=== PATIENT | male | born 1940 | race Caucasian/White ===

== ENCOUNTER 2022-11-16 09:16 | Outpatient (CLI) | payer MEDICARE, OTHER, SELFPAY | END 2022-11-16 09:17 | disposition home or self-care (01) | PROVIDERS: Visit Provider Internal Medicine Gastroenterology | DX: Z12.11 Encounter for screening for malignant neoplasm of colon (principal); K57.30 Diverticulosis of large intestine without perforation or abscess without bleeding; Z86.010 Personal history of colon polyps | CPT/HCPCS: 45378; J2250; J3010 ==

== ENCOUNTER 2023-02-08 10:33 | Day surgery (SDC) | payer MEDICARE, BC, SELFPAY ==
[2023-02-08] MEDS: LACTATED RINGERS 1000 ML 1,000 ML 100 ML IV (10:50)
[2023-02-08] MEDS: SODIUM CHLORIDE 0.9 % (FLUSH) 10 ML SYRINGE IVF (10:50)
[2023-02-08 11:00] VITALS: BP 143/83; PULSE 86; RESP 18; TEMP 36.6; O2SAT 95; BMI 33.9
--- NOTE | 2023-02-08 11:04 | SUR.PREOP ---
Patient provided home covid negative results to RN.
[2023-02-08] MEDS: BUPIVACAINE 0.5% 30 ML INJECTION (11:38)
[2023-02-08] MEDS: CEFAZOLIN 2 GM INJ IVP (11:43)
--- NOTE | 2023-02-08 12:02 | W.ANESCHARGE ---
Anesthesia Charges Start Date/Time Anesthesia Start Date: 02/08/23 Anesthesia Start Time: 11:33 Stop Date/Time Anesthesia Stop Date: 02/08/23 Anesthesia Stop Time: 12:18 Summary Extremes of Age - Over 70 or under 1: MDA
[2023-02-08 12:14] VITALS: BP 135/95; PULSE 84; RESP 16; TEMP 37; O2SAT 98
[2023-02-08 12:15] VITALS: BP 141/86; PULSE 93; RESP 16; O2SAT 95
--- NOTE | 2023-02-08 12:15 | CRLHL7_ITS ---
For Patients: As a result of the Cures Act, medical imaging exams and procedure reports are released immediately into your electronic medical record. You may view this report before your referring provider. If you have questions, please contact your health care provider. Indication: Right 5th Metatarsal Head Resection Technique: Three fluoroscopic images of the right foot. Fluoroscopic time 4.8 seconds. IMPRESSION: Fluoroscopic guidance for distal 5th metatarsal resection. Old fracture deformities of the 3rd and 4th metatarsals. Dictated by Jacobo Otoole MD @ 02/08/2023 12:31:51 PM (Electronically Signed)
--- NOTE | 2023-02-08 12:17 | PM.PROC ---
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 He has callusing that could lead to ulceration. He would like to proceed with 5th metatarsal head resection. I reviewed the procedure, recovery, expectations and potential complications. These include but not limited to: Poor wound healing, infection, potential need for future surgery, deep venous thrombosis, pulmonary embolism possible . Site was marked. All questions answered. Written consent was obtained. Procedure: Patient from the operating room placed supine position on operating table. IV sedation was initiated local anesthetic injected in the right foot. His prepped and draped in sterile fashion. Standard time-out protocol followed. Right foot was exsanguinated and the tourniquet inflated. Linear incision was made over the dorsal lateral aspect of the 5th metatarsal phalangeal joint. Incision was carried down through skin subcutaneous tissues. Linear capsular incision was made. Capsule was reflected both medial and lateral and a McGlamry periosteal elevator was used to release all plantar adhesions. Sagittal saw was then used to resect the 5th metatarsal head at the appropriate angle. C-arm confirmed position. Fifth metatarsal head removed in total. Wound was thoroughly irrigated normal sterile saline. Capsular tissues repaired with 3-0 Vicryl. Subcutaneous tissues reapproximated 4-0 Monocryl and skin closed with 4-0 Prolene. Sterile dressing was applied. Tourniquet was released and normal cap refill time returned all digits. He has trans deferred from OR to PACU vital signs stable vascular status intact. He is given both written and verbal postop instructions. The discharged per Anesthesia. He is weight-bearing as tolerated. Follow-up in 2 days. Surgeon: Ari Marie DPM Condition: stable Disposition: same day
--- NOTE | 2023-02-08 12:17 | W.ANESCHARGE ---
Anesthesia Charges Start Date/Time Anesthesia Start Date: 02/08/23 Anesthesia Start Time: 11:33 Stop Date/Time Anesthesia Stop Date: 02/08/23 Anesthesia Stop Time: 12:18 Summary Extremes of Age - Over 70 or under 1: [employer]ER
[2023-02-08 12:30] VITALS: BP 145/94; PULSE 85; RESP 16; O2SAT 98
== END 2023-02-08 13:31 | disposition home or self-care (01) ==
PROVIDERS: PCP Family Medicine; Visit Provider Podiatrist
PROC: (CPT 28113; principal; 2023-02-08 12:15)
DX: M21.621 Bunionette of right foot (principal); M77.41 Metatarsalgia, right foot; G60.0 Hereditary motor and sensory neuropathy
CPT/HCPCS: 28113; 01480; 73620; 99100; J0690; J2250; J2704; J3010; J3490; J7120

== ENCOUNTER 2023-07-30 11:01 | Outpatient (RCR) | payer MEDICARE, BC, SELFPAY ==
--- NOTE | 2023-07-27 13:50 | URNOTE ---
Request received for authorization forIsaías ([id number]). Prior authorization is not required as services are based on medical necessity and follow Medicare guidelines.
[2023-07-30 11:42] VITALS: BP 101/63; PULSE 70; RESP 14; TEMP 36.1; O2SAT 96
[2023-07-30 11:42] LABS: Calcium* 9.3 mg/dL (8.4-10.6); Creatinine* 1.2 mg/dL (0.5-1.5); Estimated Glomerular Filt Rate 61 ml/min
== END 2024-01-26 23:59 | disposition home or self-care (01) ==
LOC: CCIC 11:01
PROVIDERS: PCP Family Medicine; Referring Provider Family Medicine; Visit Provider Clinical Nurse Specialist
DX: M81.0 Age-related osteoporosis without current pathological fracture (principal)
CPT/HCPCS: 36415; 82310; 82565; 96374; J3489

== ENCOUNTER 2023-11-29 06:01 | Day surgery (SDC) | payer MEDICARE, BC, SELFPAY ==
[2023-11-29] VITALS (9 sets, daily range): BP systolic 93–139; BP diastolic 63–84; PULSE 63–77; RESP 14–16; TEMP 36.4–36.8; O2SAT 84–99; BMI 33.7
[2023-11-29] MEDS: LACTATED RINGERS 1000 ML 1,000 ML 100 ML IV (06:40)
[2023-11-29] MEDS: SODIUM CHLORIDE 0.9 % (FLUSH) 10 ML SYRINGE IVF (06:40)
--- NOTE | 2023-11-29 07:05 | CRLHL7_ITS ---
For Patients: As a result of the Century Cures Act, medical imaging exams and procedure reports are released immediately into your electronic medical record. You may view this report before your referring provider. If you have questions, please contact your health care provider. Indication: Osteotomy Technique: One fluoroscopic image of the right forefoot. Fluoroscopic time is 7.1 seconds. IMPRESSION: Fluoroscopic guidance for right foot osteotomy. Dictated by Jacobo Otoole MD @ 11/29/2023 9:15:39 AM (Electronically Signed)
[2023-11-29] MEDS: CEFAZOLIN 2 GM INJ IVP (07:17)
[2023-11-29] MEDS: BUPIVACAINE 0.5% 30 ML 20 ML INJECTION (07:19)
--- NOTE | 2023-11-29 07:34 | SUR.OPER ---
PATIENT QUESTIONS ANSWERED SATISFACTORILY PREOPERATIVELY BY [place] KENDRICK RN.? PATIENT BROUGHT TO OR #1 PER CART.? Patient positioned supine on OR #1 bed.? The perioperative?team supported arms bilaterally on arm boards.? Final approval of positioning by surgeon.
--- NOTE | 2023-11-29 08:24 | W.ANESCHARGE ---
Anesthesia Charges Start Date/Time Anesthesia Start Date: 11/29/23 Anesthesia Start Time: 07:12 Stop Date/Time Anesthesia Stop Date: 11/29/23 Anesthesia Stop Time: 08:23
--- NOTE | 2023-11-29 08:27 | PM.GSPRC ---
Operative Note Date of procedure: 11/29/23 Pre-op diagnosis: Metatarsalgia right foot Post-op diagnosis: Metatarsalgia right foot Type of Procedure: 4th metatarsal head resection right foot Indications: Patient had the 5th metatarsal head resection previously with good results there is transfer pressure to the 4th. There is an old 3rd metatarsal fracture with significant elevation causing increased pressure to the 4th. He has elected surgical correction of this deformity. I reviewed the procedure, recovery, expectations and possible complications. These include but are not limited to: Poor wound healing, infection, nonunion, malunion, continued pain, new transfer lesion, potential need for future surgery, deep venous thrombosis, pulmonary embolism and possible . All questions answered and written consent was obtained. Procedure Description: After discussing the risks and benefits of the procedure, the patient signed informed consent.? The operative site was marked and the patient was brought to the operating room and placed on the operating table in supine position.? Care was taken to pad the patient's pressure points.?? The patient was then given sedation by anesthesia.?? Local anesthetic injected into the right foot. The operative site was then prepped and draped in the usual sterile fashion.? A time-out was then performed. Right foot was exsanguinated and the ankle tourniquet inflated to 250 mm Hg. Dorsal linear incision is made over the 4th metatarsal head. Incision is carried down through skin subcutaneous tissues. A Z-lengthening was performed on the extensor tendon. Linear incision made through the capsule and periosteum of the dorsal metatarsal. A v-shaped osteotomy was made to the neck of the metatarsal. Capital fragment was transposed dorsally. With maximal dorsal translation there is still increased prominence plantarly. With a maximal dorsal translation was not possible to fixate. With the metatarsal still being prominent due to the severely of the 3rd I elected to simply remove the 4th metatarsal head in total. C-arm confirmed appropriate level of resection. Wound was thoroughly irrigated normal sterile saline. Extensor tendon was repaired with 4-0 Vicryl. Subcutaneous tissues reapproximated 4-0 Monocryl and skin closed 4-0 Prolene. Sterile dressings applied. He was transferred from OR to PACU vital signs stable vascular status intact to the right foot. He was discharged per Anesthesia. He was given both written and verbal postoperative instructions. He will restart his apixaban tomorrow. He is weight-bearing as tolerated with a postoperative shoe. Findings: Complications: Severely elevated 3rd metatarsal presented osteotomy 4th resulting in 4th metatarsal head resection. Anesthesia: MAC and local Surgeon: Ari Marie DPM Estimated blood loss (mL): 2 Condition: stable Disposition: same day
--- NOTE | 2023-11-29 10:45 | SUR.PHASEII ---
PATIENT WAITING FOR RIDE, UNABLE TO REACH .
== END 2023-11-29 12:00 | disposition home or self-care (01) ==
LOC: OR 06:03
PROVIDERS: PCP Family Medicine; Visit Provider Podiatrist
PROC: (CPT 28308; principal; 2023-11-29 07:15)
DX: M77.41 Metatarsalgia, right foot (principal); E11.9 Type 2 diabetes mellitus without complications
CPT/HCPCS: 28308; 28112; 01480; 73620; 76000; 82962; J0665; J0690; J1100; J2405; J2704; J3010; J7120

== ENCOUNTER 2023-12-02 17:34 | Outpatient (CLI) | payer MEDICARE, BC, SELFPAY | END 2023-12-02 17:35 | disposition home or self-care (01) | LOC: AMB 12-03 18:10 | PROVIDERS: PCP Family Medicine; Visit Provider Student in an Organized Health Care Education/Training Program | DX: M25.561 Pain in right knee (principal) | CPT/HCPCS: A0425; A0427 ==

== ENCOUNTER 2023-12-02 18:09 | Observation (INO) | payer MEDICARE, BC, SELFPAY ==
[2023-12-02 18:13] VITALS: BP 138/84; PULSE 76; RESP 18; TEMP 36.2; O2SAT 95; BMI 32.6
--- NOTE | 2023-12-02 19:04 | CRLHL7_ITS ---
For Patients: As a result of the Century Cures Act, medical imaging exams and procedure reports are released immediately into your electronic medical record. You may view this report before your referring provider. If you have questions, please contact your health care provider. INDICATION: Right knee pain, trauma. TECHNIQUE: Right knee radiographs, 3 views. COMPARISON: None. FINDINGS: There may be cortical discontinuity involving the lateral femoral condyle only seen on the frontal projection, raising the possibility of a subtle nondisplaced fracture. Chondrocalcinosis within the medial compartment of the left knee. Mild osteoarthritic degenerative joint space narrowing and marginal osteophytosis. The joint spaces are preserved. Moderate to large joint effusion. Small patellar enthesophytes at the quadriceps insertion. No significant soft tissue edema or radiopaque foreign bodies. IMPRESSION: Findings suspicious for a nondisplaced fracture of the lateral femoral condyle, with a moderate to large joint effusion. Dictated by Deshaun Kaiser MD @ 12/02/2023 8:09:05 PM (Electronically Signed)
--- NOTE | 2023-12-02 19:06 | ED_ITS ---
HPI - General Adult General Chief complaint: Extremity Pain/Injury, Lower Stated complaint: R knee pain Time Seen by Provider: 12/02/23 18:26 History of Present Illness HPI narrative: This 83-year-old male comes in with right knee pain. He recently had a surgery on his right foot and states that he fell directly onto his right knee last evening. Today he has worsening pain that is severe. He did take Tylenol without any relief. He has bruising over the anterior portion of his knee. There is also some abrasions. He states that he has been sitting around all day but did use a walker to get up to the bathroom. He came here by ambulance. Related Data Home Medications Medication Instructions Recorded Confirmed apixaban 5 mg tablet (Eliquis) 5 mg PO BID 12/02/22 12/02/23 diltiazem HCl 240 mg 240 mg PO DAILY 12/02/22 12/02/23 capsule,extended release 24 hr, controlled metoprolol succinate 25 mg 25 mg PO DAILY 12/02/22 12/02/23 tablet,extended release 24 hr cpap PO 12/04/22 05/26/23 levothyroxine 112 mcg capsule 112 mcg PO DAILY 01/06/23 12/02/23 prednisone 1 mg tablet 3 mg PO DAILY 01/06/23 12/02/23 acetaminophen 500 mg tablet mg PO PRN 05/26/23 05/26/23 cholecalciferol (vitamin D3) 50 2,000 unit PO DAILY 05/26/23 12/02/23 mcg (2,000 unit) capsule vibegron 75 mg tablet (Gemtesa) 75 mg PO QDAY 05/27/23 12/02/23 Allergies Allergy/AdvReac Type Severity Reaction Status Date / Time oxybutynin Allergy dry mouth Verified 12/02/23 18:12 oxycodone Allergy Vomiting Verified 12/02/23 18:12 trospium Allergy dry mouth Verified 12/02/23 18:12 Review of Systems Status of ROS: Reports: 10 or more systems reviewed and unremarkable except as noted in History and below Narrative: Constitutional: No fevers, no weight gain or loss. Eyes: No discharge. No vision changes. HENT: No congestion, no sore throat, no ear pain. Cardiovascular: No chest pain, no palpitations. Respiratory: No shortness of breath, no wheezes, no cough. Gastrointestinal: No abdominal pain, no vomiting, no diarrhea. Genitourinary: No dysuria, no hematuria. Musculoskeletal: Right knee pain as described above. Skin: No rashes, no pruritis. Neurological: No dizziness, weakness, sensory change, speech change. Endo/Heme/Allergies: No bruising or bleeding. No polydipsia. Pysch: no suicidality, no anxiety, no insomnia. All other systems reviewed and are negative. 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) Atrial fibrillation ?I48.91 - Unspecified atrial fibrillation (ICD-10) Weakness ?R53.1 - Weakness (ICD-10) Preoperative testing ?Z01.818 - Encounter for other preprocedural examination (ICD-10) Laceration Infection due to severe acute respiratory syndrome coronavirus 2 (SARS-CoV-2) ?U07.1 - COVID-19 (ICD-10) Hyponatremia ?E87.1 - Hypo-osmolality and hyponatremia (ICD-10) Fracture of rib ?S22.39XA - Fracture of one rib, unspecified side, initial encounter for closed fracture (ICD-10) Delirium ?R41.0 - Disorientation, unspecified (ICD-10) Contusion of left knee ?S80.02XA - Contusion of left knee, initial encounter (ICD-10) Confusion ?R41.0 - Disorientation, unspecified (ICD-10) Chronic obstructive pulmonary disease ?J44.9 - Chronic obstructive pulmonary disease, unspecified (ICD-10) Acute kidney injury ?N17.9 - Acute kidney failure, unspecified (ICD-10) FH: hypertension ?Z82.49 - Family history of ischemic heart disease and other diseases of the circulatory system (ICD-10) Pituitary adenoma ?D35.2 - Benign neoplasm of pituitary gland (ICD-10) Skin cancer ?C44.90 - Unspecified malignant neoplasm of skin, unspecified (ICD-10) Lumbar back pain ?M54.50 - Low back pain, unspecified (ICD-10) Osteoporosis ?M81.0 - Age-related osteoporosis without current pathological fracture (ICD- 10) Atrial fibrillation ?I48.91 - Unspecified atrial fibrillation (ICD-10) Hypertension ?I10 - Essential (primary) hypertension (ICD-10) Sleep apnea ?G47.30 - Sleep apnea, unspecified (ICD-10) Hypothyroid ?E03.9 - Hypothyroidism, unspecified (ICD-10) Surgical History H/O wrist surgery (~06/2016) ?Z98.890 - Other specified postprocedural states (ICD-10) History of arthroscopy of left shoulder (03/19/05) ?Z98.890 - Other specified postprocedural states (ICD-10) S/P trigger finger release (10/05/08) ?Z98.890 - Other specified postprocedural states (ICD-10) Status post right rotator cuff repair (10/21/18) ?Z98.890 - Other specified postprocedural states (ICD-10) History of foot surgery (03/30/22) ?Z98.890 - Other specified postprocedural states (ICD-10) H/O arthroscopy of right knee (01/13/07) ?Z98.890 - Other specified postprocedural states (ICD-10) 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) ?Z96.652 - Presence of left artificial knee joint (ICD-10) History of repair of hiatal hernia ?Z98.890 - Other specified postprocedural states (ICD-10) ?Z87.19 - Personal history of other diseases of the digestive system (ICD-10) History of cholecystectomy ?Z90.49 - Acquired absence of other specified parts of digestive tract (ICD- 10) Social History Smoking Status: Former smoker What tobacco products do you use: cigarettes Smoking quit date/years: >15 years ago Do you use any of these nicotine containing products: None Second hand tobacco smoke exposure: No How often do you have a drink containing alcohol: monthly or less Alcohol type: beer How many standard drinks containing alcohol do you have on a typical day: 1 or 2 How often do you have six or more drinks on one occasion: Never AUDIT-C Alcohol total score: 1 Non-prescribed substance use: denies use Caffeine: Yes Exam Narrative: Exam Narrative: Constitutional: Well-developed, well-nourished, no acute distress. HEENT: Normocephalic, atraumatic. Neck: Normal range of motion. Nontender. Supple. Heart: Intact distal pulses. Lungs: No chest discomfort. No wheezes, rhonchi, or rales. Abdomen: Nontender. Back: Normal range of motion. Extremities: Diffuse swelling of the right knee with some bruising and superficial abrasion. No pain when log-rolling his leg. He is not able to raise his right leg from the bed due to pain in the area of his knee. Skin: Intact. No rash. Warm. No erythema or pallor. Neurologic: No altered sensation. No weakness. Alert and oriented. Psychiatric: No suicidality. No anxiety or depression. No insomnia. Nursing notes and vitals signs are reviewed. Const: Vital Signs, click to edit/add: Vital Signs - 24 hr 12/02/23 18:13 Temperature 97.2 F L Pulse Rate [Pulse Oximeter] 76 Respiratory Rate 18 Blood Pressure [Le ft Upper Arm] 138/84 Pulse Oximetry 95 Oxygen Delivery Me thod Room Air Course Vital Signs Vital signs: Initial Vital Signs Temperature 97.2 F L 12/02/23 18:13 Temperature Source Temporal Artery Scan 12/02/23 18:13 Pulse Rate 76 12/02/23 18:13 Respiratory Rate 18 12/02/23 18:13 Blood Pressure 138/84 12/02/23 18:13 Blood Pressure Mean 102 12/02/23 18:13 Blood Pressure Position Semi-Fowlers 12/02/23 18:13 Pulse Oximetry 95 12/02/23 18:13 Oxygen Delivery Method Room Air 12/02/23 18:13 Vital Signs Temperature 97.2 F L 12/02/23 18:13 Pulse Rate 76 12/02/23 18:13 Respiratory Rate 18 12/02/23 18:13 Blood Pressure 138/84 12/02/23 18:13 Pulse Oximetry 95 12/02/23 18:13 Oxygen Delivery Method Room Air 12/02/23 18:13 Temperature 97.2 F L 12/02/23 18:13 Pulse Rate 76 12/02/23 18:13 Respiratory Rate 18 12/02/23 18:13 Blood Pressure 138/84 12/02/23 18:13 Pulse Oximetry 95 12/02/23 18:13 Oxygen Delivery Method Room Air 12/02/23 18:13 Medications Administered Medications: Generic Name Dose Route Start Last Admin Trade Name Norman PRN Reason Stop Dose Admin Morphine Sulfate 10 mg 12/02/23 19:04 12/02/23 19:10 Morphine 10 Mg/Ml Inj IM 12/02/23 19:05 10 mg ONCE ONE Administration Medical Decision Making MDM Narrative Medical decision making narrative: This patient comes in with an injury to his right knee. He has a moderate to large effusion related to this injury. An x-ray is obtained which shows some suspicion of a nondisplaced fracture of the lateral condyle of the femur. I did speak to the orthopedic physician's historian research assistant director of instruction in this regard and it seemed good to order a CT scan to more accurately evaluate this injury. In any event the patient will need to come in as he is not able to the ambulate. I did speak with Dr. Howard who will range for his admission. The patient did receive an intramuscular injection of morphine which brought sufficient pain relief. Imaging Data XR R Knee: Radiologist's impression: Findings suspicious for a nondisplaced fracture of the lateral femoral condyle, with a moderate to large joint effusion. Discharge Plan Discharge Clinical Impression: Injury of knee Patient Disposition: Admitted As Inpatient Condition: Unchanged Prescriptions: No Action diltiazem HCl 240 mg capsule,ext.rel 24h degradable 240 mg PO DAILY Patient Comments: TAKE ONE CAPSULE BY MOUTH ONE TIME DAILY metoprolol succinate 25 mg tablet extended release 24 hr 25 mg PO DAILY Patient Comments: TAKE ONE TABLET BY MOUTH ONE TIME DAILY Eliquis 5 mg tablet 5 mg PO BID Patient Comments: TAKE ONE TABLET BY MOUTH TWICE DAILY cpap PO cholecalciferol (vitamin D3) 50 mcg (2,000 unit) capsule 2,000 unit PO DAILY acetaminophen 500 mg tablet PO PRN Gemtesa 75 mg tablet 75 mg PO QDAY levothyroxine 112 mcg capsule 112 mcg PO DAILY prednisone 1 mg tablet 3 mg PO DAILY Follow Up/Referrals: Ruiz Frank MD [Primary Care Provider] -
[2023-12-02] MEDS: MORPHINE 10 MG/ML inj IM (19:10)
--- NOTE | 2023-12-02 19:58 | ED.NURSE ---
Report given to oncoming RN
--- NOTE | 2023-12-02 20:51 | CRLHL7_ITS ---
For Patients: As a result of the Century Cures Act, medical imaging exams and procedure reports are released immediately into your electronic medical record. You may view this report before your referring provider. If you have questions, please contact your health care provider. Indication: Injury, right knee pain Technique: Noncontrast CT of the right knee. Permanently recorded images are archived. Please note that all CT scans at this facility use dose modulation, iterative reconstruction, and/or weight-based dosing when appropriate to reduce radiation dose to as low as reasonably achievable. Comparison: Right knee radiographs from the same day. Findings: Multiple amorphous calcific densities within the intracondylar notch. No discrete donor site identified. Large knee joint effusion. Small superior patellar enthesophyte. Alignment is normal. Mild tricompartment degenerative changes. Subtle medial and lateral compartment chondrocalcinosis. No aggressive osseous lesion. Mild superficial soft tissue swelling about the knee. Impression: 1. No acute bony abnormality. Intact lateral femoral condyle. 2. Large knee joint effusion. No fat-fluid or hematocrit level. 3. Multiple amorphous calcific densities within the intracondylar notch. These are favored to represent intra-articular bodies as there is no discrete donor site to indicate these are acute fracture fragments. Please note that all CT scans at this facility use dose modulation, iterative reconstruction, and/or weight-based dosing when appropriate to reduce radiation dose to as low as reasonably achievable. Dictated by Lenny Montes MD @ 12/02/2023 9:54:27 PM (Electronically Signed)
--- NOTE | 2023-12-02 21:29 | PM.IMHP1 ---
Hospitalist- H&P: HPI History of Present Illness Date Seen: 12/02/23 Chief complaint: R knee pain Narrative: Gerardo Calvo is a 83 year old male with Kmjfbgg-Zihak-Lzhed disease, sleep apnea, adrenal insufficiency, atrial fibrillation on anticoagulation, diabetes mellitus and right foot surgery 3 days ago presents after a fall at home yesterday causing severe right knee pain. He had an accidental fall at home yesterday without injury other than his right knee. He reports he lost his balance and fell forward onto his knee. He did not lose consciousness or hit his head. Overnight the pain got much worse. He has been able to get up with his walker and walk but is very painful and difficult for him. Three days ago he had resection of his 4th metatarsal on his right foot by Dr. Marie. The procedure was uncomplicated. He has recovered well. He saw Dr. Marie yesterday and was not seem to have any problems. He is weight-bearing as tolerated on that foot. He reports no recent illness and no other injury. He normally walks with a walker. He has Charcot Antonia Tooth neuropathy causing weakness, particularly in his hands and feet. Review of Systems Narrative: No other recent illness or injury. 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) Atrial fibrillation ?I48.91 - Unspecified atrial fibrillation (ICD-10) Weakness ?R53.1 - Weakness (ICD-10) Preoperative testing ?Z01.818 - Encounter for other preprocedural examination (ICD-10) Laceration Infection due to severe acute respiratory syndrome coronavirus 2 (SARS-CoV-2) ?U07.1 - COVID-19 (ICD-10) Hyponatremia ?E87.1 - Hypo-osmolality and hyponatremia (ICD-10) Fracture of rib ?S22.39XA - Fracture of one rib, unspecified side, initial encounter for closed fracture (ICD-10) Delirium ?R41.0 - Disorientation, unspecified (ICD-10) Contusion of left knee ?S80.02XA - Contusion of left knee, initial encounter (ICD-10) Confusion ?R41.0 - Disorientation, unspecified (ICD-10) Chronic obstructive pulmonary disease ?J44.9 - Chronic obstructive pulmonary disease, unspecified (ICD-10) Acute kidney injury ?N17.9 - Acute kidney failure, unspecified (ICD-10) FH: hypertension ?Z82.49 - Family history of ischemic heart disease and other diseases of the circulatory system (ICD-10) Pituitary adenoma ?D35.2 - Benign neoplasm of pituitary gland (ICD-10) Skin cancer ?C44.90 - Unspecified malignant neoplasm of skin, unspecified (ICD-10) Lumbar back pain ?M54.50 - Low back pain, unspecified (ICD-10) Osteoporosis ?M81.0 - Age-related osteoporosis without current pathological fracture (ICD-10) Atrial fibrillation ?I48.91 - Unspecified atrial fibrillation (ICD-10) Hypertension ?I10 - Essential (primary) hypertension (ICD-10) Sleep apnea ?G47.30 - Sleep apnea, unspecified (ICD-10) Hypothyroid ?E03.9 - Hypothyroidism, unspecified (ICD-10) Surgical History (Updated 12/02/23 @ 21:43 by Pako Howard MD) H/O wrist surgery (~06/2016) ?Z98.890 - Other specified postprocedural states (ICD-10) History of arthroscopy of left shoulder (03/19/05) ?Z98.890 - Other specified postprocedural states (ICD-10) S/P trigger finger release (10/05/08) ?Z98.890 - Other specified postprocedural states (ICD-10) Status post right rotator cuff repair (10/21/18) ?Z98.890 - Other specified postprocedural states (ICD-10) History of foot surgery (03/30/22) ?Z98.890 - Other specified postprocedural states (ICD-10) H/O arthroscopy of right knee (01/13/07) ?Z98.890 - Other specified postprocedural states (ICD-10) 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) ?Z96.652 - Presence of left artificial knee joint (ICD-10) History of repair of hiatal hernia ?Z98.890 - Other specified postprocedural states (ICD-10) ?Z87.19 - Personal history of other diseases of the digestive system (ICD-10) History of cholecystectomy ?Z90.49 - Acquired absence of other specified parts of digestive tract (ICD-10) Family History (Updated 12/02/23 @ 21:34 by Pako Howard MD) Other High blood pressure Social History (Updated 12/02/23 @ 21:35 by Pako Howard MD) Narrative: He [place] of the [facility]. He lives with his . is healthcare power of deputy prosecuting attorney. Code status is full. He quit smoking in 1986. He rarely drinks alcohol Smoking Status: Former smoker What tobacco products do you use: cigarettes Smoking quit date/years: >15 years ago Do you use any of these nicotine containing products: None Second hand tobacco smoke exposure: No How often do you have a drink containing alcohol: monthly or less Alcohol type: beer How many standard drinks containing alcohol do you have on a typical day: 1 or 2 How often do you have six or more drinks on one occasion: Never AUDIT-C Alcohol total score: 1 Non-prescribed substance use: denies use Caffeine: Yes Meds Home Medications and Allergies Home Medications Medication Instructions Recorded Confirmed Type apixaban 5 mg tablet (Eliquis) 5 mg PO BID 12/02/22 12/02/23 History diltiazem HCl 240 mg 240 mg PO DAILY 12/02/22 12/02/23 History capsule,extended release 24 hr, controlled metoprolol succinate 25 mg 25 mg PO DAILY 12/02/22 12/02/23 History tablet,extended release 24 hr cpap PO 12/04/22 05/26/23 History levothyroxine 112 mcg capsule 112 mcg PO DAILY 01/06/23 12/02/23 History prednisone 1 mg tablet 3 mg PO DAILY 01/06/23 12/02/23 History acetaminophen 500 mg tablet mg PO PRN 05/26/23 05/26/23 History cholecalciferol (vitamin D3) 50 2,000 unit PO DAILY 05/26/23 12/02/23 History mcg (2,000 unit) capsule vibegron 75 mg tablet (Gemtesa) 75 mg PO QDAY 05/27/23 12/02/23 History Allergies Allergy/AdvReac Type Severity Reaction Status Date / Time oxybutynin Allergy dry mouth Verified 12/02/23 18:12 oxycodone Allergy Vomiting Verified 12/02/23 18:12 trospium Allergy dry mouth Verified 12/02/23 18:12 Exam Narrative: Exam Narrative: He is alert pleasant and appears in no distress. He gives his own history. Eyes are normal. Oropharynx with small airway. Neck is supple without mass or adenopathy. Respirations are clear to auscultation. Good air exchange all lung liu. Cardiovascular: S1, S2, irregularly irregular. No murmur gallop or rub. Abdomen: Bowel sounds active. Abdomen is soft without tenderness or mass. External genitalia normal. Upper extremities are unremarkable except for atrophy of the intrinsic muscles of his hands up. Otherwise relatively symmetric upper extremity strength and motion. Lower extremities examined: Left leg has a normal motion and strength and intact pulses and no edema. Right lower extremity has an obvious tense right knee effusion. Palpation of this effusion has some tenderness to it. The knee is not red. He has a little bit of lateral hot bony tenderness but otherwise no obvious focal tenderness over bony prominences of the knee. Distal to the knee he has 1 to 2+ edema over his calf and right foot. He has a postop shoe on his right foot for he had surgery 3 days ago. The dressing there is removed to inspect the wound. Sutures are in place. He has some bruising but no erythema or drainage around he the dorsum of his 4th metatarsal where the sutures are placed. Const: Vital Signs, click to edit/add: Vital Signs - 24 hr 12/02/23 18:13 Temperature 97.2 F L Pulse Rate [Pulse Oximeter] 76 Respiratory Rate 18 Blood Pressure [Le ft Upper Arm] 138/84 Pulse Oximetry 95 Oxygen Delivery Me thod Room Air Documenting provider has reviewed patient's vital signs: yes Assessment and Plan Assessment and plan (1) Injury of knee: Problem comment: Tense joint effusion, suspect hemarthrosis, suspect fracture or ligamentous tear. Unable to walk. Consult Ortho Status: Acute (2) Aflhfmq-Dsewt-Ogltd disease: Status: Acute (3) Chronic anticoagulation: Problem comment: On Eliquis for atrial fibrillation. Will hold dose tonight due to concern about bleeding. Probably can resume in the next day depending on orthopedic consult and clinical course. Status: Acute (4) Atrial fibrillation: Problem comment: On anticoagulation. Hold for tonight Status: Acute (5) History of foot surgery: Problem comment: Resection of 4th metatarsal head on right foot [address] Marie. Weight-bearing as tolerated Resection of 5th metatarsal head, left foot (03/30/2022, Dr. Marie) Status: Acute (6) Disability of walking: Problem comment: Disability due to chronic medical problems, CMT and neuropathy and now foot surgery and knee injury. Ortho consult to determine activity and PT and OT to evaluate Status: Acute Plan Patient is a an 83-year-old male with a knee injury and likely acute heme arthrosis admitted to the hospital for evaluation of his injury and pain control. Multiple comorbidities affecting his mobility. Orthopedics, PT, OT to evaluate. May need higher level of care temporarily.\ Will hold apixaban tonight but likely can be resumed relatively soon depending on his clinical course. Total time spent today is 60 minutes, 40 minutes in coordination of care and discussing with patient and other providers management of disability, knee injury.
--- NOTE | 2023-12-02 21:29 | ED.NURSE ---
Report given to m/s nurseJasvir. All questions answered. Nurse notified pt has an allergy to oxycodone listed, but orders show oxycodone has been ordered by Dr. Howard. Notified nurse to speak with Dr. Howard regarding this. Pt transferred to Room 261 in stable condition. All belongings with patient upon transfer.
[2023-12-02 21:46] VITALS: BP 150/89; PULSE 94; RESP 16; TEMP 37.5; O2SAT 96; BMI 34.3
[2023-12-02] MEDS: OXYCODONE 5 MG TABLET PO (22:16)
[2023-12-02 22:49] LABS: Chloride* 100 mmol/L (96-114); Potassium* 4.3 mmol/L (3.6-5.1); Sodium* 135 mmol/L (135-149)
[2023-12-02 22:52] LABS: Anion Gap 7 mEq/L (7-15); Carbon Dioxide* 28 mmol/L (20-32); Creatinine* 0.9 mg/dL (0.5-1.5); Est. Creatinine Clearance* 51.39; Estimated Glomerular Filt Rate 85 ml/min
[2023-12-02 22:53] LABS: Blood Urea Nitrogen* 25 mg/dL (7-30); Glucose* 118 mg/dL (60-115)
[2023-12-02 22:55] LABS: Basophils Absolute Auto 0.01 K/uL (0.00-0.30); Basophils Percent Auto 0.1 % (0.0-3.0); Eosinophils Absolute Auto 0.08 K/uL (0.00-0.50); Eosinophils Percent Auto 0.8 % (0.0-7.0); Hematocrit 41.2 % (37.0-53.0); Hemoglobin* 13.3 gm/dL (13.5-17.5); Immature Granulocytes Abs Auto 0.13 K/uL (0.00-0.30); Immature Granulocytes Pct Auto 1.3 %; Lymphocytes Percent Auto 19.9 % (20-44); Mean Corpuscular HGB Conc 32 gm/dL (32-36); Mean Corpuscular Hemoglobin 29 pg (26-34); Mean Corpuscular Volume 91 fL (80-100); Monocytes Percent Auto 10.7 % (0.0-11.0); Neutrophils Absolute Auto 6.69 K/uL (1.7-7.0); Neutrophils Percent Auto 67.2 % (42.0-72.0); Platelet Count* 248 K/uL (140-440); RDW Coefficient of Variation % 13.2 % (11.5-15.5); Red Blood Count 4.55 m/uL (4.30-5.90); White Blood Count* 9.95 K/uL (4.50-11.00)
[2023-12-02 22:56] LABS: C Reactive Protein* 3.9 mg/dL (0.5-1.0)
[2023-12-02 22:58] LABS: Slide Review Reflex No
[2023-12-02 23:00] VITALS: BP 150/83; PULSE 87; RESP 16; TEMP 37.2; O2SAT 91
[2023-12-02 23:43] LABS: Thyroid Stimulating Hormone* 0.105 uIU/mL (0.270-4.20)
[2023-12-03 03:00] VITALS: BP 142/97; PULSE 80; RESP 16; TEMP 37.2; O2SAT 93
[2023-12-03] MEDS: OXYCODONE 5 MG TABLET PO (06:27)
[2023-12-03] MEDS: LEVOTHYROXINE 112 MCG TABLET PO (06:27)
--- NOTE | 2023-12-03 06:55 | PC.NURSE ---
Shift note: Pt arrived at the unit on admission bed from ER on account of fall. Patient complained of pain in the right knee rated at 5/10. Conscious, A/O on arrival. Pt is hard of hearing but do no use hearing aid. V/S monitored appeared normal except the T 99.9 and Bp 150/89. Pt said he was allergic to Oxycodone due to previous experience of vomiting with this medication. However, MD ordered to give and monitor for any reaction. Pt had no reaction to the medication after given and was repeated this morning with no reaction. Cryocuff applied to the right knee. Pt had adequate sleep. Bruises and abrasion noted on the right lower extremity. Home CPAP was brought in and was assessed by tiny sup. Pt has been on the CPAP throughout the night. Pt has not been moved out of bed since admission and therefore unable assess how much help will be needed for ambulation.
[2023-12-03 07:30] VITALS: BP 133/81; PULSE 104; RESP 16; TEMP 36.5; O2SAT 96
[2023-12-03] MEDS: ACETAMINOPHEN 325 MG TABLET 650 MG PO (07:41)
[2023-12-03 08:56] LABS: Mononuclear WBC Body Fluid* 4 %; Polynuclear WBC Body Fluid* 96 %
[2023-12-03 09:00] LABS: BF Clarity* Cloudy; BF Color Grossly Bloody; BF Total Volume* 15; RBC, Body Fluid* 70000 Cells/uL
[2023-12-03 09:01] LABS: WBC, Body Fluid* 30100 Cells/uL
[2023-12-03] MEDS: METOPROLOL SUCCINATE (XL) 25 MG TAB PO (09:22)
[2023-12-03] MEDS: predniSONE 1 MG TABLET 3 MG PO (09:22)
[2023-12-03] MEDS: dilTIAZem 120 MG CAP.ER.24H 240 MG PO (09:22)
[2023-12-03 11:20] VITALS: BP 111/65; PULSE 83; RESP 16; TEMP 36.6; O2SAT 96
--- NOTE | 2023-12-03 12:13 | P.ORCN_ITS ---
History of Present Illness HPI Time Seen by Provider: 07:45 Date Seen: 12/03/23 Consult date: 12/03/23 Requesting physician: Pako Howard Chief complaint: R knee pain Narrative: Gerardo Calvo is a very pleasant 83 year old male with Lxshqtp-Sgzeb-Oawzt disease, sleep apnea, adrenal insufficiency, atrial fibrillation on anticoagulation, diabetes mellitus and right foot surgery 3 days ago presents to [facility] a fall at home 12/01/2023 causing severe right knee pain. He had an accidental fall without injury other than his right knee. He reports he lost his balance and fell forward onto his right knee. He has had his left knee replaced in the past. He did not lose consciousness or hit his head. His pain has been worsening. He has been able to get up with his walker and walk but is very painful and difficult for him. 4 days ago he had resection of his 4th metatarsal on his right foot by Dr. Marie. The procedure was uncomplicated. He has recovered well. He saw Dr. Marie 12/01/2023 and was not seem to have any problems. He is weight- bearing as tolerated on that foot. He reports no recent illness and no other injury. He normally walks with a walker. He has Charcot Antonia Tooth neuropathy causing weakness, particularly in his hands and feet. 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) Atrial fibrillation ?I48.91 - Unspecified atrial fibrillation (ICD-10) Weakness ?R53.1 - Weakness (ICD-10) Preoperative testing ?Z01.818 - Encounter for other preprocedural examination (ICD-10) Laceration Infection due to severe acute respiratory syndrome coronavirus 2 (SARS-CoV-2) ?U07.1 - COVID-19 (ICD-10) Hyponatremia ?E87.1 - Hypo-osmolality and hyponatremia (ICD-10) Fracture of rib ?S22.39XA - Fracture of one rib, unspecified side, initial encounter for closed fracture (ICD-10) Delirium ?R41.0 - Disorientation, unspecified (ICD-10) Contusion of left knee ?S80.02XA - Contusion of left knee, initial encounter (ICD-10) Confusion ?R41.0 - Disorientation, unspecified (ICD-10) Chronic obstructive pulmonary disease ?J44.9 - Chronic obstructive pulmonary disease, unspecified (ICD-10) Acute kidney injury ?N17.9 - Acute kidney failure, unspecified (ICD-10) FH: hypertension ?Z82.49 - Family history of ischemic heart disease and other diseases of the circulatory system (ICD-10) Pituitary adenoma ?D35.2 - Benign neoplasm of pituitary gland (ICD-10) Skin cancer ?C44.90 - Unspecified malignant neoplasm of skin, unspecified (ICD-10) Lumbar back pain ?M54.50 - Low back pain, unspecified (ICD-10) Osteoporosis ?M81.0 - Age-related osteoporosis without current pathological fracture (ICD- 10) Atrial fibrillation ?I48.91 - Unspecified atrial fibrillation (ICD-10) Hypertension ?I10 - Essential (primary) hypertension (ICD-10) Sleep apnea ?G47.30 - Sleep apnea, unspecified (ICD-10) Hypothyroid ?E03.9 - Hypothyroidism, unspecified (ICD-10) Surgical History (Updated 12/02/23 @ 21:43 by Pako Howard MD) H/O wrist surgery (~06/2016) ?Z98.890 - Other specified postprocedural states (ICD-10) History of arthroscopy of left shoulder (03/19/05) ?Z98.890 - Other specified postprocedural states (ICD-10) S/P trigger finger release (10/05/08) ?Z98.890 - Other specified postprocedural states (ICD-10) Status post right rotator cuff repair (10/21/18) ?Z98.890 - Other specified postprocedural states (ICD-10) History of foot surgery (03/30/22) ?Z98.890 - Other specified postprocedural states (ICD-10) H/O arthroscopy of right knee (01/13/07) ?Z98.890 - Other specified postprocedural states (ICD-10) 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) ?Z96.652 - Presence of left artificial knee joint (ICD-10) History of repair of hiatal hernia ?Z98.890 - Other specified postprocedural states (ICD-10) ?Z87.19 - Personal history of other diseases of the digestive system (ICD-10) History of cholecystectomy ?Z90.49 - Acquired absence of other specified parts of digestive tract (ICD- 10) Family History (Updated 12/02/23 @ 21:34 by Pako Howard MD) Other High blood pressure Social History (Updated 12/02/23 @ 21:35 by Pako Howard MD) Narrative: [place]. He lives with his . 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 Code status is full. He quit smoking in 1986. He rarely drinks alcohol What is your current living situation?: I presently have a place to live Problems where you live: no known problems Problems where you live details: N/A In the past 12 months, utilities in danger of being shut off: no In past 12 months, lack of transportation kept you from medical appts, meetings, work, or getting things needed for daily living: no In the past 12 mos, have been you worried that your food would run out before you had money to buy more?: never true In the past 12 mos, the food you bought just didn't last and you didn't have money to buy more?: never true Highest level of school completed/degree received: Bachelor's degree Smoking Status: Former smoker What tobacco products do you use: cigarettes Smoking quit date/years: >15 years ago Do you use any of these nicotine containing products: None Second hand tobacco smoke exposure: No How often do you have a drink containing alcohol: monthly or less Alcohol type: beer How many standard drinks containing alcohol do you have on a typical day: 1 or 2 How often do you have six or more drinks on one occasion: Never AUDIT-C Alcohol total score: 1 Non-prescribed substance use: denies use Caffeine: Yes How often does anyone, including family, friends and others, physically hurt you : never How often does anyone, including family, friends and others, insult or talk down to you: never How often does anyone, including family, friends and others, threaten you with harm: never How often does anyone, including family, friends and others, scream or curse at you: never service: Yes Meds Home Medications and Allergies Home Medications Medication Instructions Recorded Confirmed Type apixaban 5 mg tablet (Eliquis) 5 mg PO BID 12/02/22 12/02/23 History diltiazem HCl 240 mg 240 mg PO DAILY 12/02/22 12/02/23 History capsule,extended release 24 hr, controlled metoprolol succinate 25 mg 25 mg PO DAILY 12/02/22 12/02/23 History tablet,extended release 24 hr prednisone 1 mg tablet 3 mg PO DAILY 01/06/23 12/02/23 History acetaminophen 500 mg tablet 500 mg PO Q6H PRN 05/26/23 12/03/23 History cholecalciferol (vitamin D3) 50 2,000 unit PO DAILY 05/26/23 12/02/23 History mcg (2,000 unit) capsule vibegron 75 mg tablet (Gemtesa) 75 mg PO DAILY 05/27/23 12/03/23 History levothyroxine 112 mcg tablet 112 mcg PO QAM 12/03/23 12/03/23 History Allergies Allergy/AdvReac Type Severity Reaction Status Date / Time oxybutynin Allergy dry mouth Verified 12/02/23 18:12 oxycodone Allergy Vomiting Verified 12/02/23 18:12 trospium Allergy dry mouth Verified 12/02/23 18:12 Ortho Exam Narrative Exam Narrative: Alert. Patient is in no acute distress. Converses without labored breathing. Hearing is grossly intact. Examined supine in his hospital bed. Examination of the right knee with large effusion. The knee is tender to palpation globally. He is not able to straight leg raise. 1+ to 2+ edema over the right foot and pretibial area. Postop shoe on the right foot. No erythema or warmth or sign of infection. Pain with range of motion of the knee passively. Unable to test stability of the knee due to his extreme pain. He h as peripheral neuropathy. Sensation about the knee is intact to light touch, capillary refill less than 2 seconds. Right hip exam is difficult to assess due to right knee pain. There does not appear to be right hip pain but exam is limited. Const Vital Signs, click to edit/add: Vital Signs - 24 hr 12/02/23 18:13 12/02/23 21:46 12/02/23 23:00 Temperature 97.2 F L 99.5 F Pulse Rate [Pulse Oximeter] 76 Pulse Rate [Right Pulse Oximeter] 94 87 Respiratory Rate 18 16 16 Blood Pressure [Left Arm] 150/89 H Blood Pressure [Left Upper Arm] 138/84 Pulse Oximetry 95 96 Oxygen Delivery Method Room Air Room Air 12/02/23 23:00 12/03/23 03:00 12/03/23 07:30 Temperature 98.9 F 99 F 97.7 F Pulse Rate [Pulse Oximeter] Pulse Rate [Right Pulse Oximeter] 87 80 104 H Respiratory Rate 16 16 16 Blood Pressure [Left Arm] 150/83 H 142/97 H 133/81 Blood Pressure [Left Upper Arm] Pulse Oximetry 91 93 96 Oxygen Delivery Method Room Air Room Air Room Air 12/03/23 07:30 12/03/23 11:20 Temperature 97.8 F Pulse Rate [Pulse Oximeter] Pulse Rate [Right Pulse Oximeter] 104 H 83 Respiratory Rate 16 Blood Pressure [Left Arm] 111/65 Blood Pressure [Left Upper Arm] Pulse Oximetry 96 Oxygen Delivery Method Room Air Results Labs Labs: Laboratory Results - last 48 hr 12/02/23 12/03/23 22:25 08:00 WBC 9.95 RBC 4.55 Hgb 13.3 L Hct 41.2 MCV 91 MCH 29 MCHC 32 RDW Coeff of Mike 13.2 Plt Count 248 Neut % (Auto) 67.2 Lymph % (Auto) 19.9 L Pender % (Auto) 10.7 Eos % (Auto) 0.8 Baso % (Auto) 0.1 Neut # (Auto) 6.69 Lymph # (Auto) 2.00 Pender # (Auto) 1.10 H Eos # (Auto) 0.08 Baso # (Auto) 0.01 Abs Immat Gran (auto) 0.13 Imm/Tot Granulo (auto) 1.3 Sodium 135 Potassium 4.3 Chloride 100 Carbon Dioxide 28 Anion Gap 7 BUN 25 Creatinine 0.9 Estimated Creat Clear 51.39 Estimated GFR 85 Glucose 118 H Calcium 9.0 C-Reactive Protein 3.9 H TSH 0.105 L Fluid Volume 15 Fluid Color Grossly Bloody A Fluid Appearance Cloudy A Fluid WBC 78997 Fluid RBC 61519 Fluid Polynuclear WBCs 96 Fluid Mononuclear WBCs 4 Diagnostic results Additional Comments: CT right knee dated 12/02/2023 [facility] shows Multiple amorphous calcific densities within the intracondylar notch. No discrete donor site identified. Large knee joint effusion. Small superior patellar enthesophyte. Alignment is normal. Mild tricompartment degenerative changes. Subtle medial and lateral compartment chondrocalcinosis. No aggressive osseous lesion. Mild superficial soft tissue swelling about the knee. Impression: 1. No acute bony abnormality. Intact lateral femoral condyle. 2. Large knee joint effusion. No fat-fluid or hematocrit level. 3. Multiple amorphous calcific densities within the intracondylar notch. These are favored to represent intra-articular bodies as there is no discrete donor site to indicate these are acute fracture fragments. Dr. Kruger has spoken with Dr. Otoole an asked for a reread and they discussed the images together. An addendum will be coming. They discussed Gerardo likely has a PCL avulsion. X-rays right knee three views dated 12/02/2023 [facility] shows There may be cortical discontinuity involving the lateral femoral condyle only seen on the frontal projection, raising the possibility of a subtle nondisplaced fracture. Chondrocalcinosis within the medial compartment of the left knee. Mild osteoarthritic degenerative joint space narrowing and marginal osteophytosis. The joint spaces are preserved. Moderate to large joint effusion. Small patellar enthesophytes at the quadriceps insertion. No significant soft tissue edema or radiopaque foreign bodies. IMPRESSION: Findings suspicious for a nondisplaced fracture of the lateral femoral condyle, with a moderate to large joint effusion. Assessment and Plan Assessment and plan (1) Injury of knee: Problem comment: Tense joint effusion, suspect hemarthrosis, suspect fracture or ligamentous tear. Unable to walk. Consult Ortho Status: Acute Total time spent: Total time spent is greater than 50% in coordination of care (as documented) at patient's floor/unit and/or counseling patient: (2) Zbwofqp-Clnsu-Cpghx disease: Status: Acute Total time spent: Total time spent is greater than 50% in coordination of care (as documented) at patient's floor/unit and/or counseling patient: (3) Chronic anticoagulation: Problem comment: On Eliquis for atrial fibrillation. Will hold dose tonight due to concern about bleeding. Probably can resume in the next day depending on orthopedic consult and clinical course. Status: Acute Total time spent: Total time spent is greater than 50% in coordination of care (as documented) at patient's floor/unit and/or counseling patient: (4) Atrial fibrillation: Problem comment: On anticoagulation. Hold for tonight Status: Acute Total time spent: Total time spent is greater than 50% in coordination of care (as documented) at patient's floor/unit and/or counseling patient: (5) History of foot surgery: Problem comment: Resection of 4th metatarsal head on right foot [address] Marie. Weight-bearing as tolerated Resection of 5th metatarsal head, left foot (03/30/2022, Dr. Marie) Status: Acute Total time spent: Total time spent is greater than 50% in coordination of care (as documented) at patient's floor/unit and/or counseling patient: (6) Disability of walking: Problem comment: Disability due to chronic medical problems, CMT and neuropathy and now foot surgery and knee injury. Ortho consult to determine activity and PT and OT to evaluate Status: Acute Total time spent: Total time spent is greater than 50% in coordination of care (as documented) at patient's floor/unit and/or counseling patient: (7) Hemarthrosis, right knee: Status: Acute Assessment and Plan: Images are discussed with Dr. Kruger at length. Treatment for José includes knee immobilizer when ambulating. Weightbear as pain allows right lower extremity. Range of motion as tolerated. Dr. Kruger states after speaking with Dr. Otoole radiologist that Gerardo has a PCL avulsion fracture that will be treated as if it is a posterior fracture. I aspirated the knee this morning. I am hopeful this gives him at least some pain relief, however he is on anticoagulants. His hemarthrosis may return. May resume apixaban. The procedures listed below. PT and OT. No need for an MRI at this time, for it would not change the plan per Dr. Kruger. Procedure: A detailed conversation was had regarding the description, purpose and nature of right knee aspiration. Risks, benefits, possible complications, and non surgical alternatives were discussed with the patient during this conversation. The patient was given the opportunity to ask questions and received answers to their satisfaction. The patient indicated that they understood the purpose and nature of right knee aspiration and its risks, benefits, possible complications, and nonsurgical alternatives. The patient wants to undergo procedure given the information provided. Verbal, and written consent was obtained from the patient prior to the procedure. After the injection areas was sterilely prepped with ChloraPrep, 3 mL of 1% lidocaine is injected under the skin and in subcutaneous tissue. 100 mL of bloody with joint fluid is aspirated. The patient tolerated the procedure well. After the procedure he was still not able in a straight leg raise. Band-Aid was placed. Knee fluid was sent for culture, Gram stain, cell count, crystals. G stain is negative. The fluid did not look infected.
[2023-12-03 15:00] VITALS: BP 126/72; PULSE 85; RESP 16; TEMP 36.5; O2SAT 97
[2023-12-03] MEDS: TRAMADOL HCL 50 MG TABLET PO (15:17)
--- NOTE | 2023-12-03 15:43 | PM.IMPN1 ---
Progress Note: A&P Assessment and plan (1) Injury of knee: Problem details: Tense joint effusion, suspect hemarthrosis, suspect fracture or ligamentous tear. Unable to walk. Ortho consulted, joint aspiration completed. Per orthopedic surgery, Images are discussed with Dr. Kruger at length. Treatment for José includes knee immobilizer when ambulating. Weightbear as pain allows right lower extremity. Range of motion as tolerated. Dr. Kruger states after speaking with Dr. Otoole radiologist that Gerardo has a PCL avulsion fracture that will be treated as if it is a posterior fracture. I aspirated the knee this morning. I am hopeful this gives him at least some pain relief, however he is on anticoagulants. His hemarthrosis may return. May resume apixaban. The procedures listed below. PT and OT. No need for an MRI at this time, for it would not change the plan per Dr. Kruger. Status: Acute (2) Hemarthrosis, right knee: Problem details: As above Will resume apixaban per Orthopedic surgery PT/OT Status: Acute (3) Acadyup-Hhwkg-Ylqvs disease: Problem details: Chronic debilities, risk for falls PT/OT Status: Acute (4) Chronic anticoagulation: Problem details: On Eliquis for atrial fibrillation. Okay to resume per Orthopedic surgery Status: Acute (5) Atrial fibrillation: Problem details: Continue apixaban Status: Acute (6) History of foot surgery: Problem details: Resection of 4th metatarsal head on right foot [address] Marie. Weight-bearing as tolerated Resection of 5th metatarsal head, left foot (03/30/2022, Dr. 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 Possible discharge tomorrow. Time Spent With Patient Total time spent: Total time spent caring for the patient today was 45 minutes. This includes time spent for the visit reviewing the chart, time spent during the visit, time spent after the visit and documentation and planning in coordination of care. Subjective Date Seen: 12/03/23 Interval history: Patient reports feeling better since admission. Pain is adequately managed. Denies headache or dizziness. No chest pain or shortness of breath. Tolerating orals without nausea vomiting. Exam Narrative: Exam Narrative: PHYSICAL EXAM General: Pleasant, conversant, NAD HEENT: Normocephalic, atraumatic, sclera white, EOMI, oral mucosa moist Cardiovascular: RRR, S1S2. Pulmonary: CTA bilaterally without rhonchi, rales, expiratory wheezes. No dyspnea Abdominal: Soft, nondistended, NTTP Neurological: Alert, answering questions appropriately, cranial nerves intact, no focal findings Extremities: Neurovascularly intact. Effusion noted over right knee, edema of lower extremity. Postop shoe in place Skin: Warm, dry. Const: Vital Signs, click to edit/add: Vital Signs - 24 hr 12/02/23 18:13 12/02/23 21:46 12/02/23 23:00 Temperature 97.2 F L 99.5 F Pulse Rate [Pulse Oximeter] 76 Pulse Rate [Right Pulse Oximeter] 94 87 Respiratory Rate 18 16 16 Blood Pressure [Le ft Arm] 150/89 H Blood Pressure [Le ft Upper Arm] 138/84 Pulse Oximetry 95 96 Oxygen Delivery Me od Room Air Room Air 12/02/23 23:00 12/03/23 03:00 12/03/23 07:30 Temperature 98.9 F 99 F 97.7 F Pulse Rate [Pulse Oximeter] Pulse Rate [Right Pulse Oximeter] 87 80 104 H Respiratory Rate 16 16 16 Blood Pressure [Le ft Arm] 150/83 H 142/97 H 133/81 Blood Pressure [Le ft Upper Arm] Pulse Oximetry 91 93 96 Oxygen Delivery Tn thod Room Air Room Air Room Air 12/03/23 07:30 12/03/23 11:20 Temperature 97.8 F Pulse Rate [Pulse Oximeter] Pulse Rate [Right Pulse Oximeter] 104 H 83 Respiratory Rate 16 Blood Pressure [Le ft Arm] 111/65 Blood Pressure [Le ft Upper Arm] Pulse Oximetry 96 [facility] Labs Labs: Laboratory Results - last 24 hr 12/02/23 12/03/23 22:25 08:00 WBC 9.95 RBC 4.55 Hgb 13.3 L Hct 41.2 MCV 91 MCH 29 MCHC 32 RDW Coeff of Mike 13.2 Plt Count 248 Neut % (Auto) 67.2 Lymph % (Auto) 19.9 L Tompkins % (Auto) 10.7 Eos % (Auto) 0.8 Baso % (Auto) 0.1 Neut # (Auto) 6.69 Lymph # (Auto) 2.00 Tompkins # (Auto) 1.10 H Eos # (Auto) 0.08 Baso # (Auto) 0.01 Abs Immat Gran (auto) 0.13 Imm/Tot Granulo (auto) 1.3 Sodium 135 Potassium 4.3 Chloride 100 Carbon Dioxide 28 Anion Gap 7 BUN 25 Creatinine 0.9 Estimated Creat Clear 51.39 Estimated GFR 85 Glucose 118 H Calcium 9.0 C-Reactive Protein 3.9 H TSH 0.105 L Fluid Volume 15 Fluid Color Grossly Bloody A Fluid Appearance Cloudy A Fluid WBC 23720 Fluid RBC 46589 Fluid Polynuclear WBCs 96 Fluid Mononuclear WBCs 4
--- NOTE | 2023-12-03 15:51 | PM.IMPN1 ---
Progress Note: A&P Assessment and plan (1) Injury of knee: Problem details: Tense joint effusion, suspect hemarthrosis, suspect fracture or ligamentous tear. Unable to walk. Ortho consulted, joint aspiration completed. Per orthopedic surgery, Images are discussed with Dr. Kruger at length. Treatment for José includes knee immobilizer when ambulating. Weightbear as pain allows right lower extremity. Range of motion as tolerated. Dr. Kruger states after speaking with Dr. Otoole radiologist that Gerardo has a PCL avulsion fracture that will be treated as if it is a posterior fracture. I aspirated the knee this morning. I am hopeful this gives him at least some pain relief, however he is on anticoagulants. His hemarthrosis may return. May resume apixaban. The procedures listed below. PT and OT. No need for an MRI at this time, for it would not change the plan per Dr. Kruger. Status: Acute (2) Hemarthrosis, right knee: Problem details: As above Will resume apixaban per Orthopedic surgery PT/OT Status: Acute (3) Iyaalvs-Bjckm-Yafmg disease: Problem details: Chronic debilities, risk for falls. Continue home prednisone. PT/OT Status: Acute (4) Chronic anticoagulation: Problem details: On Eliquis for atrial fibrillation. Okay to resume per Orthopedic surgery Status: Acute (5) Atrial fibrillation: Problem details: Continue apixaban Status: Acute (6) History of foot surgery: Problem details: Resection of 4th metatarsal head on right foot [address] Marie. Weight-bearing as tolerated Resection of 5th metatarsal head, left foot (03/30/2022, Dr. 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 Possible discharge tomorrow. Time Spent With Patient Total time spent: Total time spent caring for the patient today was 45 minutes. This includes time spent for the visit reviewing the chart, time spent during the visit, time spent after the visit and documentation and planning in coordination of care. Subjective Date Seen: 12/04/23 Exam Narrative: Exam Narrative: PHYSICAL EXAM General: Pleasant, conversant, NAD HEENT: Normocephalic, atraumatic, sclera white, EOMI, oral mucosa moist Cardiovascular: RRR, S1S2. Pulmonary: CTA bilaterally without rhonchi, rales, expiratory wheezes. No dyspnea Abdominal: Soft, nondistended, NTTP Neurological: Alert, answering questions appropriately, cranial nerves intact, no focal findings Extremities: Neurovascularly intact. Effusion noted over right knee, edema of lower extremity. Postop shoe in place Skin: Warm, dry. Const: Vital Signs, click to edit/add: Vital Signs - 24 hr 12/02/23 18:13 12/02/23 21:46 12/02/23 23:00 Temperature 97.2 F L 99.5 F Pulse Rate [Pulse Oximeter] 76 Pulse Rate [Right Pulse Oximeter] 94 87 Respiratory Rate 18 16 16 Blood Pressure [Le ft Arm] 150/89 H Blood Pressure [Le ft Upper Arm] 138/84 Pulse Oximetry 95 96 Oxygen Delivery Me thod Room Air Room Air 12/02/23 23:00 12/03/23 03:00 12/03/23 07:30 Temperature 98.9 F 99 F 97.7 F Pulse Rate [Pulse Oximeter] Pulse Rate [Right Pulse Oximeter] 87 80 104 H Respiratory Rate 16 16 16 Blood Pressure [Le ft Arm] 150/83 H 142/97 H 133/81 Blood Pressure [Le ft Upper Arm] Pulse Oximetry 91 93 96 Oxygen Delivery Me thod Room Air Room Air Room Air 12/03/23 07:30 12/03/23 11:20 Temperature 97.8 F Pulse Rate [Pulse Oximeter] Pulse Rate [Right Pulse Oximeter] 104 H 83 Respiratory Rate 16 Blood Pressure [Le ft Arm] 111/65 Blood Pressure [Le ft Upper Arm] Pulse Oximetry 96 Oxygen Delivery Hi thod Room Air Labs Labs: Laboratory Results - last 24 hr 12/02/23 12/03/23 22:25 08:00 WBC 9.95 RBC 4.55 Hgb 13.3 L Hct 41.2 MCV 91 MCH 29 MCHC 32 RDW Coeff of Mike 13.2 Plt Count 248 Neut % (Auto) 67.2 Lymph % (Auto) 19.9 L [place] % (Auto) 10.7 Eos % (Auto) 0.8 Baso % (Auto) 0.1 Neut # (Auto) 6.69 Lymph # (Auto) 2.00 [place] # (Auto) 1.10 H Eos # (Auto) 0.08 Baso # (Auto) 0.01 Abs Immat Gran (auto) 0.13 Imm/Tot Granulo (auto) 1.3 Sodium 135 Potassium 4.3 Chloride 100 Carbon Dioxide 28 Anion Gap 7 BUN 25 Creatinine 0.9 Estimated Creat Clear 51.39 Estimated GFR 85 Glucose 118 H Calcium 9.0 C-Reactive Protein 3.9 H TSH 0.105 L Fluid Volume 15 Fluid Color Grossly Bloody A Fluid Appearance Cloudy A Fluid WBC 98076 Fluid RBC 62015 Fluid Polynuclear WBCs 96 Fluid Mononuclear WBCs 4
[2023-12-03 19:00] VITALS: BP 121/69; PULSE 92; RESP 20; TEMP 36.5; O2SAT 94
--- NOTE | 2023-12-03 19:04 | PC.SOCIAL ---
Discharge planning: Met with pt at his request. Pt asked about a short term rehab stay in a senior living at discharge. Discussed with pt that he will not meet criteria for insurance coverage or medical need for a senior living. Discussed pt's concerns about going home. Pt states he would like to go somewhere with grab bars in the bathroom. Pt states his is able to physically assist him but he was wondering about a senior living stay. Discussed options and later visited again to provide pt with written information on rn homecare care, private pay respite stay or hotels that some patients have chosen to discharge to. Pt was appreciative of information provided and states his is coming to the hospital to work with him and therapy tomorrow to learn what they need to do to take him home. Pt states he no longer things he needs additional assistance or to go anyplace other than home at discharge. Pt is aware of how to contact social work program coordinator if he needs additional resources or discharge planning.
[2023-12-03] MEDS: MELATONIN 3 MG TABLET PO (20:40)
[2023-12-03] MEDS: APIXABAN 5 MG TABLET PO (20:40)
[2023-12-03 23:00] VITALS: BP 113/68; PULSE 88; RESP 21; TEMP 36.8; O2SAT 92
[2023-12-04] MEDS: TRAMADOL HCL 50 MG TABLET PO ×2 (02:49→08:52)
[2023-12-04 02:51] VITALS: BP 126/59; PULSE 78; RESP 18; TEMP 36.3; O2SAT 96
[2023-12-04] MEDS: ACETAMINOPHEN 325 MG TABLET 650 MG PO ×3 (04:02→13:03)
[2023-12-04] MEDS: LEVOTHYROXINE 112 MCG TABLET PO (06:11)
--- NOTE | 2023-12-04 06:34 | PC.NURSE ---
Patient pleasant, alert and oriented. Transferred with walker and assist of one. Reported pain in his right low back rated 10/10. PRN medications and warm compress not effective. Patient was transferred to recliner and reports back pain has resolved. ?
[2023-12-04 07:18] VITALS: BP 108/70; PULSE 95; RESP 18; TEMP 36.9; O2SAT 95
[2023-12-04 07:35] LABS: Hematocrit 40.4 % (37.0-53.0); Hemoglobin* 13.1 gm/dL (13.5-17.5); Mean Corpuscular HGB Conc 32 gm/dL (32-36); Mean Corpuscular Hemoglobin 29 pg (26-34); Mean Corpuscular Volume 90 fL (80-100); Platelet Count* 220 K/uL (140-440); Red Blood Count 4.51 m/uL (4.30-5.90); White Blood Count* 11.32 K/uL (4.50-11.00)
[2023-12-04 07:38] LABS: Slide Review Reflex No
[2023-12-04 07:52] LABS: Chloride* 100 mmol/L (96-114); Sodium* 133 mmol/L (135-149)
[2023-12-04 07:53] LABS: Potassium* 4.1 mmol/L (3.6-5.1)
[2023-12-04 07:55] LABS: Anion Gap 9 mEq/L (7-15); Carbon Dioxide* 24 mmol/L (20-32); Creatinine* 1.1 mg/dL (0.5-1.5); Est. Creatinine Clearance* 46.72; Estimated Glomerular Filt Rate 67 ml/min
[2023-12-04 07:56] LABS: Blood Urea Nitrogen* 25 mg/dL (7-30); Calcium* 8.8 mg/dL (8.4-10.6); Glucose* 118 mg/dL (60-115)
[2023-12-04] MEDS: predniSONE 1 MG TABLET 3 MG PO (08:51)
[2023-12-04] MEDS: APIXABAN 5 MG TABLET PO (08:52)
[2023-12-04] MEDS: METOPROLOL SUCCINATE (XL) 25 MG TAB PO (08:52)
[2023-12-04] MEDS: dilTIAZem 120 MG CAP.ER.24H 240 MG PO (08:52)
[2023-12-04] MEDS: LIDOCAINE 5% PATCH 1 PATCH TRANSDERMA (09:01)
[2023-12-04 11:57] VITALS: BP 99/60; PULSE 72; RESP 16; TEMP 36.4; O2SAT 96
--- NOTE | 2023-12-04 12:33 | PM.DS1 ---
DS: Providers Provider Date Seen: 12/04/23 Date of admission: 12/02/23 21:36 Primary care physician: Ruiz Frank MD Admitting Clinician: Pako Howard MD Consults: 12/02/23 21:16 Consult to Physician [CONS] Urgent Comment: Consulting Provider: Evan Kruger Has provider been notified: Yes 12/02/23 21:19 Consult to Occupational Therapy [CONS] Routine Comment: Reason(s) for OT Consult:: Evaluate and Treat Any Restrictions?:: No Restrictions Consult to Physical Therapy [CONS] Routine Comment: Reason(s) for PT Consult:: Evaluate and Treat Any Restrictions?:: No Restrictions Attending Physician on discharge: MARIUSZ Gaona[facility] Date [facility] Discharge: 12/04/23 DS: Diagnosis Discharge Diagnosis (1) Injury of knee: Status: Acute Problem details: Ortho consulted, joint aspiration completed. Per orthopedic surgery, Images are discussed with Dr. Kruger at length. Treatment for José includes knee immobilizer when ambulating. Weightbear as pain allows right lower extremity. Range of motion as tolerated. Dr. Kruger states after speaking with Dr. Otoole radiologist that Gerardo has a PCL avulsion fracture that will be treated as if it is a posterior fracture. I aspirated the knee this morning. I am hopeful this gives him at least some pain relief, however he is on anticoagulants. His hemarthrosis may return. May resume apixaban. PT and OT consulted. No need for an MRI at this time, for it would not change the plan per Dr. Kruger. (2) Hemarthrosis, right knee: Status: Acute Problem details: Orthopedic surgery consulted, plans as above. Resume apixaban per orthopedic surgery PT and OT consulted, spending much time with patient and . Does not qualify for snf facility. Able to return home with supports. Will ask friends and her family to help as needed. Paperwork for home therapy completed, will likely call on Wednesday to schedule evaluation. Outpatient follow-up in orthopedic clinic 7-10 days. (3) Cubfpro-Tgdfa-Lwvgb disease: Status: Acute Problem details: Chronic debilities, risk for falls. (4) Chronic anticoagulation: Status: Acute Problem details: On Eliquis for atrial fibrillation. Okay to resume per Orthopedic surgery (5) Atrial fibrillation: Status: Acute Problem details: Continue apixaban (6) History of foot surgery: Status: Acute Problem details: Resection of 4th metatarsal head on right foot [address] Marie. Weight-bearing as tolerated Resection of 5th metatarsal head, left foot (03/30/2022, Dr. Marie) DS: Summary Hospital Course Hospital Course: [age] year old male past medical history significant for atrial fibrillation on chronic anticoagulation, arthritis, Vcqnykf-Hjhex-Qmcwc disease, carpal tunnel syndrome was admitted to the medical floor under observation for further management right knee injury. Course of care and details as noted above. As above, nonsurgical management. Immobilizer with weight-bearing as tolerated. Outpatient orthopedic clinic follow-up 7-10 days. Pain management. Home therapy evaluation. Remainder of chronic medical comorbidities were monitored and managed with home medications. Status at Discharge Overall status at discharge: patient is not back to baseline Time Spent with Patient Time attestation: Total time spent providing and/or coordinating discharge services: Time spent: Greater than 30 minutes Exam Narrative: Exam Narrative: PHYSICAL EXAM General: Pleasant, conversant, NAD Cardiovascular: RRR Pulmonary: No dyspnea Neurological: Alert, answering questions appropriately Skin: Warm, dry. Const: Vital Signs, click to edit/add: Vital Signs - 24 hr 12/03/23 15:00 12/03/23 15:00 12/03/23 19:00 Temperature 97.7 F 97.7 F Pulse Rate [Right Pulse Oximeter] 85 85 92 Respiratory Rate 16 16 20 Blood Pressure [Le ft Arm] 126/72 121/69 Pulse Oximetry 97 94 Oxygen Delivery Me thod Room Air Room Air 12/03/23 23:00 12/04/23 02:51 12/04/23 07:18 Temperature 98.2 F 97.4 F L 98.4 F Pulse Rate [Right Pulse Oximeter] 88 78 95 Respiratory Rate 21 18 18 Blood Pressure [Le ft Arm] 113/68 126/59 L 108/70 Pulse Oximetry 92 96 95 Oxygen Delivery Me thod Room Air Room Air Room Air 12/04/23 11:57 Temperature 97.6 F Pulse Rate [Right Pulse Oximeter] 72 Respiratory Rate 16 Blood Pressure [Le ft Arm] 99/60 Pulse Oximetry 96 Oxygen Delivery Me thod Room Air DS: Data Data Completed and Pending Labs on day of discharge: Labs from last 24 hours 12/04/23 07:28 WBC 11.32 H RBC 4.51 Hgb 13.1 L Hct 40.4 MCV 90 MCH 29 MCHC 32 Plt Count 220 Sodium 133 L Potassium 4.1 Chloride 100 Carbon Dioxide 24 Anion Gap 9 BUN 25 Creatinine 1.1 Estimated Creat Clear 46.72 Estimated GFR 67 Glucose 118 H Calcium 8.8 Preliminary micro results at discharge 12/03/23 08:00 Wound Culture - Preliminary Knee,Right NO GROWTH AFTER 24 HOURS Discharge Plan Discharge Disposition: Home, Self-Care Date of Admission: 12/02/23 21:36 Attending Provider on Discharge: Jayne Stevens Consulting Providers: Evan Kruger Primary Care Provider: Ruiz Frank Condition: Unchanged Anticipated Discharge Date/Time: 12/04/23 12:22 Discharge Medications: New lidocaine 5 % Adhesive Patch,Medicated 1 patch transdermal Q24H Qty: 15 0RF hydroxyzine pamoate 25 mg Capsule 25 mg PO HS PRNQty: 10 0RF sennosides-docusate sodium [Stool Softener-Laxative] 8.6-50 mg Tablet 1 tab-cap PO BID Qty: 30 0RF Rx Instructions: TAKE WHILE TAKING NARCOTICS tramadol 50 mg Tablet 50 mg PO Q6H PRN (Reason: Pain) Qty: 12 0RF Continued diltiazem HCl 240 mg capsule,ext.rel 24h degradable 240 mg PO DAILY metoprolol succinate 25 mg tablet extended release 24 hr 25 mg PO DAILY Eliquis 5 mg tablet 5 mg PO BID cholecalciferol (vitamin D3) 50 mcg (2,000 unit) capsule 2,000 unit PO DAILY Gemtesa 75 mg tablet 75 mg PO DAILY prednisone 1 mg tablet 3 mg PO DAILY levothyroxine 112 mcg tablet 112 mcg PO QAM Changed acetaminophen 500 mg tablet 650 mg PO Q6H Qty: 90 0RF Discharge Orders: Discharge Order (Routine); Ordered 12/04/23 Ordered By: Jayne Stevens Patient Education: Hydroxyzine (By mouth), Tramadol (By mouth), Lidocaine Patch (On the skin), Senna (By mouth) (Sen, Senna-lax), Hemarthrosis (GEN) Additional Instructions: Recommend home therapy eval Activity Level: Activity as Tolerated and Weight Bearing as Tolerated Activity Detail: Knee immobilizer when ambulating. Weightbear as pain allows. Continue activity per PT/OT recommendations. Home therapy recommended. Discharge Diet: Regular Follow Up Appointments: Orthopedics, [facility] [Provider Group] - 12/15/23 (Outpatient orthopedic follow-up 7-10 days, hemarthrosis.) Ruiz Frank MD [Primary Care Provider] - 12/15/23 (Post hospital follow-up, hemarthrosis, CALL [phone] TO MAKE AN APPOINTMENT) Forms: [employer] [facility] [employer] Info Instructions
--- NOTE | 2023-12-04 13:52 | PC.NURSE ---
Pt alert and oriented. Pt had pain ranging from 2-10; see EMAR for intervention. Cryocuff in place. Pt is WBAT in knee immobilizer-SBA with gait belt and walker. Pt up to chair. Pt has a lidocaine patch to right thigh- Pt discharged with patch on and instructed to remove patch at 2100. at bedside and provided with education from Hospitalist, RN, PT and OT. Discharge instructions thoroughly covered with Pt and . Pt already has a yearly appointment with PCP on 12/13/23;Pt will keep that appointment and was instructed to make a follow up with Orthopedics for an appointment in 7-10 days; phone number and instructions also provided on discharge instructions. No IV in place. Pt discharged home with .?
--- NOTE | 2023-12-06 11:59 | PC.SOCIAL ---
Discharge planning: Called pt's , Brittany regarding home care order. states she would like [facility] to provide the PT/OT. is interested in information on day care home provider care although she does not need it now. Emailed information on day care home provider care in case this is needed in the future. Called [facility] and spoke with Mckenzie who is working on referral to open this week. migratory worker to send face to face order when completed.
== END 2023-12-04 13:45 | disposition home or self-care (01) ==
LOC: ED 20:56 → MEDSURG 21:41
PROVIDERS: Physician Assistant; Admitting Provider Family Medicine; Emergency Provider Emergency Medicine Emergency Medical Services; PCP Family Medicine; Visit Provider Family Medicine
DX: S83.521A Sprain of posterior cruciate ligament of right knee, initial encounter (principal); M25.061 Hemarthrosis, right knee; S80.211A Abrasion, right knee, initial encounter; M25.561 Pain in right knee; W19.XXXA Unspecified fall, initial encounter; R60.0 Localized edema; G62.9 Polyneuropathy, unspecified; G60.0 Hereditary motor and sensory neuropathy; I48.91 Unspecified atrial fibrillation; E27.40 Unspecified adrenocortical insufficiency; R26.2 Difficulty in walking, not elsewhere classified; J44.9 Chronic obstructive pulmonary disease, unspecified; D35.2 Benign neoplasm of pituitary gland; M81.0 Age-related osteoporosis without current pathological fracture; E11.9 Type 2 diabetes mellitus without complications; I10 Essential (primary) hypertension; G47.30 Sleep apnea, unspecified; E03.9 Hypothyroidism, unspecified; Z79.01 Long term (current) use of anticoagulants; S89.91XA Unspecified injury of right lower leg, initial encounter; Z91.81 History of falling; Z96.652 Presence of left artificial knee joint; Z87.19 Personal history of other diseases of the digestive system; Z87.891 Personal history of nicotine dependence; Z86.16 Personal history of COVID-19; Z90.49 Acquired absence of other specified parts of digestive tract; Z82.49 Family history of ischemic heart disease and other diseases of the circulatory system; Z98.890 Other specified postprocedural states
CPT/HCPCS: 36415; 51798; 73562; 73700; 80048; 84443; 85025; 85027; 86140; 87070; 87205; 89051; 96372; 97110; 97116; 97161; 97165; 97530; 97535; 99285; A9270; G0378; J2001; J2270; J7512

== ENCOUNTER 2024-05-15 07:32 | Day surgery (SDC) | payer MEDICARE, BC, SELFPAY ==
[2024-05-15] VITALS (8 sets, daily range): BP systolic 126–140; BP diastolic 62–80; PULSE 57–67; RESP 18–20; TEMP 36.9; O2SAT 95–98; BMI 32.3
--- OUTSIDE RECORDS SUMMARY | 2024-05-15 07:35 | XMS_ITS | Clinical Summary ---
Author Organization [facility] Address [place], [place] [address] Care Team Providers Care Extern Name Role Phone Jordi Torres Unavailable Girish Max MD Unavailable Unavail able Ruiz Frank MD Primary Care Provider Lazaro Carrington MD Unavailable Allergies Active Allergy Reactions Criticality Noted Date Comments Oxybutynin Other - Describe In Comment Field Dry mouth Trospium Other - Describe In Comment Field Dry mouth Medications Medication Sig Dispensed Refills Start Date End Date Status Cholecalciferol, Vitamin D3, 2,000 unit tabletIndications:Vi tamin D deficiency,Osteoporo sis, unspecified Take 1 tablet by mouth once daily. 0 05/30/2012 Active predniSONE (DELTASONE) 1 mg tabletIndications:Se condary adrenal insufficiency (HC) Take 3 Tablets (3 mg) by mouth once daily with a meal. May use extra for stress dosing. Total monthly tabs = 100 300 Tablet 3 03/19/2023 Active apixaban (Eliquis) 5 mg tabletIndications:Pa roxysmal atrial fibrillation (HC) TAKE ONE TABLET BY MOUTH TWICE DAILY 180 Tablet 3 06/23/2023 Active durable medical equipment (DME)Indications:S/P foot surgery, right [id number] Squared toe post op shoe. Medium 1 Each 12/01/2023 Active acetaminophen 325 mg cap Take 2 Tablets by mouth every 6 hours if needed. 05/26/2023 Active hydrOXYzine pamoate (VISTARIL) 25 mg capsule Take 25 mg by mouth at bedtime if needed. 12/04/2023 Active traMADoL (ULTRAM) 50 mg tablet Take 50 mg by mouth 2 times daily if needed for Pain. 12/04/2023 Active lidocaine 4 % topical patch Apply 1 Patch on dry, clean, hairless skin once daily. 12/04/2023 Active sennosides-docusate (SENOKOT S) (8.6-50 mg) tablet Take 1 Tablet by mouth 2 times daily if needed for Constipation. 12/04/2023 Active dilTIAZem (DILACOR XR; DILTIA XT) 240 mg Extended-Release capsuleIndications:C hronic atrial fibrillation (HC) Take 1 Capsule (240 mg) by mouth once daily. 90 Capsule 3 12/13/2023 Active metoprolol succinate (TOPROL XL) 25 mg Sustained-Release tabletIndications:Es sential hypertension Take 1 Tablet (25 mg) by mouth once daily. 90 Tablet 2 03/06/2024 Active vibegron (Gemtesa) 75 mg tabletIndications:OA B (overactive bladder) Take 1 Tablet (75 mg) by mouth once daily. 90 Tablet 03/10/2024 Active levothyroxine (SYNTHROID) 112 mcg tabletIndications:Ce ntral hypothyroidism Take 1 Tablet (112 mcg) by mouth before breakfast. 90 Tablet 03/13/2024 Active BIPAPIndications:DYLAN (obstructive sleep apnea) BIPAP machine for home use at pressure: 18/14 cm/H2O , full face mask x1/3month with a full face cushion x1/mo 1 Each 11 05/02/2024 Active BiPapIndications:DYLAN (obstructive sleep apnea) BIPAP machine for home use at pressure: 18/14 cm/H2O , full face mask x1/3month with a full face cushion x1/mo 1 Each 11 07/26/2023 Discontinue d(*Medicati on adjustment) Active Problems Problem Noted Date Diagnosed Date Type 2 diabetes mellitus wit h stage 3a chronic kidney disease, without long-term current use of insulin 11/23/2023 Osteoporosis 06/10/2023 Aneurysm of ascending aorta without rupture 05/25 Pituitary adenoma 12/11/2022 Parkinson's disease 03/19/2022 Type 2 diabetes mellitus wit hout complication, without long-term current use of insulin 12/01/2021 Chronic obstructive pulmonar y disease, unspecified COPD type 11/28/2021 Diastolic heart failure, unspecified HF chronici ty 11/28/2021 Stage 3a chronic kidney disease 11/28/2021 Peripheral sensory neuropathy: Duloxetine. 11/28 Age-related osteoporosis wit hout current pathological fracture 07/09/2020 Skin cancer 10/19/2019 Overview: 09/2019 - LEFT HAND FIFTH METATARSAL, NEEDS ED & C Anemia of unknown etiology 06/21/2019 Sensorineural hearing loss (SNHL) of both ears 0 12/29/2018 Atrial fibrillation 06/25/2017 Overview: Eliquis Central hypothyroidism 03/19/2015 Left lumbar radiculopathy 12/28/2011 Intervertebral disk disease 08/31/2011 Overview: Lumbar Unspecified essential hypertension 05/18/2011 Overview: Started Lisinopril 20 mg 04/2011. Onychomycosis 05/18/2011 Overview: Left 3 toe: suggest Tea Tree Oil Vitamin D deficiency 01/12/2011 Adrenal insufficiency 04/18/2010 Overview: Presented with Na of 117 and K of 5.5. Treated with flurocortisone. Cortisol baseline 1>>4 after 30 minutes>>6 after 1 hour Problem is secondary to Pituitary Adenoma - surgically removed. CMT (Fzfjawq-Gpcpq-Erkma disease) 04/17/2010 Overview: Reviewed the origin of this diagnosis. He tells me that this was originally diagnosed in the mid , when he first saw a neurologist in [place], and then was referred to the [facility] where the diagnosis was apparently confirmed. Also, she saw Dr. Velazquez of neurology last year where this diagnosis was again confirmed. He does indeed have characteristic features of distal leg muscle weakness (near absent foot dorsiflexion , pedis cavus foot deformity, decreased proprioception). He also states that his father had similar symptoms. Symptoms have now been stable for some time. He indicates that Dr. Mcqueen suggested possibly benefiting from foot braces at some point in the future, presumably an AFO to correct foot drop. Unspecified hypothyroidism 01/18/2007 Overview: No Pituitary. DYLAN 05/03/2019 AHI-61 FFM heated hose 01/18/2007 Overview: Does not use CPAP at home Resolved Problems Problem Noted Date Diagnosed Date Resolved Date Non-pressure chronic ulcer o f skin of other sites limited to breakdown of skin 11/23/202312/13 Thoracic aortic aneurysm, ruptured 03/19/2022 02/03/2023 Osteopenia 10/30/2014 11/26/2020 Overview: history of osteoporosis-range t-scores; improvement by 2014; fosamax stopped. Plan to recheck dxa in 2 yrs, 2016 Pituitary adenoma 03/29/2013 11/26/2020 Overview: 2 cm macroadenoma. Resection 04/22/10 (transsphenoidal). Panhypopit, nice response to replacement. Insomnia, unspecified 10/03/20122019 Overview: Will try Tylenol PM; improved 06/12/2013 Cardiac arrhythmia 10/03/2012 Overview: Holter > 9000 suprventricular ectopies. Saw Card, increased Metoprolol XL to 100, discontinued Chlorthalidone. Neg nucl ST 10/2014. Personal history of colonic polyps 06/02/2012 11/28/2021 Overview: Colonoscopy 05/2012 diverticulosis repeat in 5 years Colonoscopy 05/2017 Polyps repeat in 5 years Mixed hyperlipidemia 02/01/2012 015 Overview: Improved with dietary changes Headache(784.0) 10/07/2011 11/24/2019 Overview: Only since having discontinued Prednisone 08/2011; patient advised to resume a low dose Prednisone and follow up with Dr Payton. 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 Resection 03/2910 Hyponatremia 04/17/2010 09/23/2010 Hyperkalemia 04/17/2010 09/23/2010 Hypochloremia 04/17/2010 09/23/2010 Ingrown nail 01/07/2010 04/17/2010 Plantar fascial fibromatosis 01/07/2010 04/17/2010 Proximal muscle weakness 08/13/2009 Routine general medical exam ination at a health care facility 07/09/2009 05/06/2015 Osteoporosis, unspecified 10/29/2008 Overview: Started Fosamax 2008; bone mineral density 2010 shows good results thus far; PLAN: recheck bone mineral density 2012. Continue Calcium, vitamin D, exercise. 05/30/2012 Impaired fasting glucose 02/06/2008 Hypertrophy of prostate with urinary obstruction and other lower urinary tract symptoms (LUTS) 02/06/2008 09/04/2009 Diverticulum of esophagus, acquired 08/18/2007 01/25/2008 Diaphragmatic hernia without mention of obstruction or gangrene 08/10/2007 01/25/2008 Displacement of intervertebr al disc, site unspecified, without myelopathy 05/18/2007 09/28/20 08 Other malignant neoplasm of skin, site unspecified 01/18/2007 11/28/2021 Overview: Left Face - excised by Dr North Other specified idiopathic p eripheral neuropathy 01/18/2007 05/02/2017 Unspecified anemia 01/18/2007 2 Overview: Hgb baseline 12.3-12.5 Colonoscopy 02/2007 Recheck 5yrs UGI Endoscopy 02/2007 No Evid Bleed. Unspecified essential hypertension 01/18/2007 02/15/2008 Polymyalgia rheumatica 01/18/200710/07 Overview: Diagnosed 2006, was started on prednisone 15mg daily now on 1mg daily; now decreased to 4mg/day. 01/12/2011 Encounters Date Type Department Care Team Description 05/02/2024 1:00 PM CDT Office Visit [facility] [address] [place] [address] Zack Aguilar MD Sleep Follow-up 05/02/2024 Travel 03/30/2024 10:25 AM CDT Office Visit [facility] [address] [place] [address] Christa Grissom MD Pain (Left armpit / left side of breast x 1 week ) 03/30/2024 Travel 03/30/2024 Telephone [facility] [address] [place] [address] Ruiz Frnak MD Pain In Side 03/12/2024 Refill [facility] [address] [facility] [address] [place] [address] Lazaro Carrington MD Refill Request (Levothyroxine) 03/05/2024 Refill [facility] [address] [place] [address] Ruiz Frank MD Refill Request (Metoprolol Succinate) 03/01/2024 2:00 PM CDT Telemedicine [facility] [place] [address] [facility] [address] [place] [phone] Jacobo Hall MD Chronic atrial fibrillation from Last 3 Months Immunizations Name Administration Dates Next Due AMB INFLUENZA IIV3 (AGE 65+ YRS) PF (Flu Clinic Only) 08/09/2019,08/19/2018,07/09/2017 AMB Influenza, IIV3 (Age >=3 years)(Flu Clinic Only) 08/02/2013,08/21/2008 Amb Influenza, Inact (High-d ose) (Flu Clinic Only) 07/10/2016,07/19/2014 Amb Influenza, Inactivated A IIV4 (Age 65+ Years) Preserv Free 07/18/2020 COVID-19 vaccine (Pfizer-Bio NTech 30mcg/0.3mL) 12YO+ ANNA-SUCROSE PF, MDV 02/16/2022 COVID-19 vaccine (Pfizer-Bio NTech 30mcg/0.3mL) PF, MDV 01/02/2021,12/12/2020 Influenza A (H1N1), Inactivated 10/16/2009 Influenza A (H1N1), Inactiva bandar (Age >=3 Years) 10/16/2009 Influenza Virus, Unspecified 07/31/2021, 07/18/2020,08/09/2019,08/19,07/09/2017,07/10/2016,08/01/2015 ,07/19/2014,08/02/2013,07/07/2012,06/26,07/25/2010,10/16/2009, 8,08/18/2007,2006,08/25/2006,,08/27/2003 Influenza, High-dose Inactivated 08/01/2015 Influenza, High-dose Quadriv alent Inactivated 08/14/2023,09/08/2022 Influenza, IIV3 (Age 6-35 mos) 07/25/2010 Influenza, IIV3 (Age >=3 years) 07/07/20 12,07/15/2011,07/25/2010,07/24,07/24/2009,08/18/2007,08/25/2006 ,09/12/2005,08/27/2003 Influenza, Inactivated AIIV4 (Age 65+ Years) Preserv Free 07/31/2021 Pneumococcal Conj 20-valent (Prevnar 20) 12/11/2022 Pneumococcal Poly,23-Valent (Pneumovax) 06/28/2009,08/20/1998 Pneumococcal conj 13-Valent (Prevnar 13) 09/18/2014 RSV, Recombinant ADJ Reconst ituted (Arexvy 120MCG/0.5mL) 09/18/2023 Td (Age >=7 Years) 10/20/2000,10/25/1997, 990 Tdap 07/24/2020,08/25/2010 Zoster (Shingrix-RZV, recombinant) 06/25/2018,,12/28/2017 Zoster (Zostavax-ZVL, live) 01/16/2010 Family History Medical History Relation Name Comments Hypertension Brother Jacobo Hypertension Father Jack sudden at 68 Cancer-colon Neg. 1 Cancer-prostate Neg. 2 Diabetes Neg. 3 Anesthesia Problem No Family History Blood Disease No Family History Relation Name Status Comments Brother Jacobo Alive Father Jack (Age 68) Mother Nancy (Age 92) Neg. 1 Neg. 2 Neg. 3 Social History Tobacco Use Types Packs/Day Years Used Date Smoking Tobacco: Former Cigarettes 0.5 22.5 1 - 02/21/1987 Pipe Cigars Smokeless Tobacco: Never Tobacco Cessation:Counseling Given: No Comments:Smoked pipe for 15-20yrs Alcohol Use Standard Drinks/Week Comments Yes 0 (1 standard drink = 0.6 oz pur e alcohol) rare PHQ-2 Answer Date Recorded PHQ-2 TOTAL SCORE 1 12/13/2023 Social Connections Answer Date Recorded Frequency of Communication with Friends and Fami ly 0 06/10/2023 Financial Resource Strain Answer Date R ecorded Difficulty of Paying Living Expenses 3 06/10/2023 Difficulty of Paying Living Expenses Not on file 06/10/2023 Food Insecurity Answer Date Recorded Worried About Running Out of Food in the Last Ye ar 1 06/10/2023 Transportation Needs Answer Date Record ed Lack of Transportation (Medical) 1 06/10/2023 Housing Stability Answer Date Recorded Unable to Pay for Housing in the Last Year 1 06/10/2023 Sex and Gender Information Value Date Recorded Sex Assigned at Not on file Gender Identity Not on file Sexual Orientation Not on file Obstetrics History Last Filed Vital Signs Vital Sign Reading Time Taken Comments Blood Pressure 127/69 05/02/2024 1:01 PM CDT Pulse 70 05/02/2024 1:01 PM CDT Temperature 36.5 ??C (97.7 ??F) 12/15/2023 1:21 PM CS T Respiratory Rate 14 12/23/2020 9:55 AM BEEF FARMER Oxygen Saturation 98% 05/02/2024 1:01 PM CDT Inhaled Oxygen Concentration - - Weight 93.8 kg (206 lb 12.8 oz) 05/02/2024 1:01 PM CDT Height 168.2 cm (5' 6.22) 05/02/2024 1:01 PM CD T Body Mass Index 33.16 05/02/2024 1:01 PM CDT Plan of Treatment Upcoming Encounters Date Type Department Care Team (Late st Contact Info) Description 05/25/2024 1:15 PM CDT Office Visit [facility] [address] [place] [address] Ruiz Frank MD [address] [place] [address] 06/06/2024 1:25 PM CDT Phone Office Visit [facility] [address] [place], [place] [phone] Lazaro Carrington MD [address] [place] [address] Health Maintenance Due Date Last Done Comments COVID-19 vaccine series ( season) 2023 08/14/2023, 08/11/2022, 02/16/2022, Additional history exists Influenza for age 65+ 06/25/2024 08/14/2023 , 09/08/2022, 07/31/2021, Additional history exists Medicare Wellness for age 65+ 12/13/2024, 12/11/2022, 11/28/2021, Additional history exists Depression screening for age 12+ 12/15/2024 12/15/2023, 12/14/2023, 12/14/2023, Additional history exists BMI (ht and wt on same day) for age 18+ 05/02/2025 05/02/2024, 12/13/2023, 11/23/2023, Additional history exists Tetanus booster 07/24/2030 07/24/2020, 10/2009, 10/20/2000, Additional history exists Zoster (shingles) series for age 50+ Completed 06/25/2018, 03/16/2018, 12/28/2017, Additional history exists Tdap Completed 07/24/2020, 08/25/2010 Pneumococcal series for age 65+ Completed 12/11/2022, 09/18/2014, 06/28/2009, Additional history exists Medical Devices Implanted Type Area Welder Pipe Making Device Identifier Shelf Expiration Date Model / Serial / Lot Zoie Hole Cover 14mm Implanted:Qty: 3 on 04/22/2010 at [facility] [id number] / / [id number] Description:ZOIE HOLE COVER 14MM MEDPOR Procedures Procedure Name Priority Date/Time Associated Diagnosis Comments CBC WITH AUTO DIFFERENTIAL Routine 05/02/2024 1:41 PM CDT Fatigue, unspecified type SEDIMENTATION RATE Routine 05/02/2024 1: 41 PM CDT Fatigue, unspecified type CREATININE Routine 05/02/2024 1:41 PM CDT Fatigue, unspecified type T4,FREE Routine 05/02/2024 1:41 PM CDT Fatigue, unspecified type C-REACTIVE PROTEIN Routine 05/02/2024 1: 41 PM CDT Fatigue, unspecified type CBC WITH AUTO DIFFERENTIAL Routine 05/02/2024 1:41 PM CDT Fatigue, unspecified type from Last 3 Months Results * SEDIMENTATION RATE (05/02/2024 1:41 PM CDT) Pathologist [facility] SEDIMENTATION RATE 17 <20 mm/hr 2023 10:29 PM CDT [facility] Blood BLOOD SPECIMEN / Unknown Venipuncture / Unknown 05/02/2024 1:41 PM CDT 05/02/2024 1:43 PM CDT Zack Aguilar MD [facility] [address] [place] [address], * (ABNORMAL) CBC WITH AUTO DIFFERENTIAL (05/02/2024 1:41 PM CDT) [facility] WHITE BLOOD COUNT 9.2 4.5 - 11.0 thou/cu mm 05/02/2024 1:50 PM CDT [facility] RED BLOOD COUNT 4.16(L) 4.30 - 5.90 mil/cu mm 05/02/2024 1:50 PM CDT [facility] HEMOGLOBIN 12.5(L) 13.5 - 17.5 g/dL 05/02/2024 1:50 PM CDT [facility] HEMATOCRIT 38.1 37.0 - 53.0 % 05/02/2024 1:50 PM CDT [facility] MCV 92 80 - 100 fL 05/02/2024 1:50 PM CDT [facility] MCH 30.0 26.0 - 34.0 pg 05/02/2024 1:50 PM CDT [facility] MCHC 32.8 32.0 - 36.0 g/dL 05/02/2024 1:50 PM CDT [facility] RDW 13.3 11.5 - 15.5 % 05/02/2024 1:50 PM CDT [facility] PLATELET COUNT 197 140 - 440 thou/cu mm 05/02/2024 1:50 PM CDT [facility] MPV 9.7 6.5 - 11.0 fL 05/02/2024 1:50 PM CDT [facility] % NEUT 58.9 % 05/02/2024 1:50 PM CDT [facility] % LYMPH 27.8 % 05/02/2024 1:50 PM CDT [facility] % MONO 10.8 % 05/02/2024 1:50 PM CDT [facility] % EOS 2.2 % 05/02/2024 1:50 PM CDT [facility] % BASO 0.3 % 05/02/2024 1:50 PM CDT [facility] ABSOLUTE NEUTROPHILS 5.4 1.7 - 7.0 thou/cu mm 05/02/2024 1:50 PM CDT [facility] ABSOLUTE LYMPHOCYTES 2.6 0.9 - 2.9 thou/cu mm 05/02/2024 1:50 PM CDT [facility] ABSOLUTE MONOCYTES 1.0(H) <0.9 thou/cu mm 05/02/2024 1:50 PM CDT [facility] ABSOLUTE EOSINOPHILS 0.2 <0.5 thou/cu mm 05/02/2024 1:50 PM CDT [facility] ABSOLUTE BASOPHILS 0.0 <0.3 thou/cu mm 05/02/2024 1:50 PM CDT [facility] Blood BLOOD SPECIMEN / Unknown Venipuncture / Unknown 05/02/2024 1:41 PM CDT 05/02/2024 1:43 PM CDT Zack Aguilar MD HEMATOLOGY [facility] [address] [place] [address], [place] [phone] * (ABNORMAL) CREATININE (05/02/2024 1:41 PM CDT) eGFR 70(L) >90 mL/min/1.7 3m2 05/03/2024 12:05 AM CDT [facility] Comment:As of 2022, eG FR is calculated by the CKD-EPI creatinine equation without race adjustment. ??eGFR can be influenced by muscle mass, exercise, and diet. ??The reported eGFR is an estimation only and is only applicable if the renal function is stable. CREATININE 1.06 0.70 - 1.20 mg/dL 05/03/2024 12:05 AM CDT [facility] Blood BLOOD SPECIMEN / Unknown Venipuncture / Unknown 05/02/2024 1:41 PM CDT 05/02/2024 1:43 PM CDT Zack Aguilar MD CHEMISTRY [facility] [address] [place] [address], [place] * (ABNORMAL) C-REACTIVE PROTEIN (05/02/2024 1:41 PM CDT) C-REACTIVE PROTEIN 0.8(H) <0.5 mg/dL 05/03/2024 12:05 AM CDT [facility] Blood BLOOD SPECIMEN / Unknown Venipuncture / Unknown 05/02/2024 1:41 PM CDT 05/02/2024 1:43 PM CDT Zack Aguilar MD CHEMISTRY Performing Organization Address City/[facility]/ZIP Co de Phone Number [facility] [address] [place] [address], * T4,FREE (05/02/2024 1:41 PM CDT) T4,FREE 1.31 0.93 - 1.70 ng/dL 05/03/2024 12:05 AM CDT [facility] Blood BLOOD SPECIMEN / Unknown Venipuncture / Unknown 05/02/2024 1:41 PM CDT 05/02/2024 1:43 PM CDT Zack Aguilar MD CHEMISTRY Performing Organization Address [facility] Co de Phone Number [facility] [address] [place] [address], from Last 3 Months Advance Directives Documents on File Type Date Recorded Patient Mysql Dba Expl anation Healthcare Directive 11/18/2007 AN ADVA NCE DIRECTIVE/[facility], 11/18/07 * Full Code (Latest Code Status on File) Date Activated Date Inactivated Comments 04/22/2010 1:26 PM 04/26/2010 3:23 PM * Full Code Date Activated Date Inactivated Comments 04/21/2010 3:32 PM 04/22/2010 2:19 AM * DNR Date Activated Date Inactivated Comments 04/17/2010 11:28 AM 04/21/2010 3:32 PM DNR status was discussed at this time. Care Teams Extern Relationship Specialty Start Date End Date Ruiz Frank MD [address] [place] [address] PCP - General Family Practice 06/12/13 Jordi Torres [address] [place] [address] Coupon Manifest Clerk 10/07/11 Girish Max MD [address] [place] [address] Surgery - Orthopedics 10/07/11 Lazaro Carrington MD [address] [facility] [address] [place] [address] Endocrinology 03/18/23
--- OUTSIDE RECORDS SUMMARY | 2024-05-15 07:35 | XMS_ITS | Clinical Summary ---
Author Organization [facility] Address [address], [place] [address] Care Team Providers Care Chemical Etch Operator Name Role Phone Ruiz Frank MD Primary Care Provider [phone] Source Comments You are receiving this document as you are listed as the primary care provider,follow-up provider, or the patient has been referred to you for consultation.This is in compliance with the Medicare and[facility] EHR Incentive Program,which states Providers who transition their patient to another setting of careor provider of care or refers their patient to another provider of care shouldprovide summary care record for each transition of care or referral. Lucibel Allergies Active Allergy Reactions Criticality Noted Date Comments Oxycodone-Acetaminophen Nausea And Vomiting 10/2015 Medications Medication Sig Dispensed Refills Start Date End Date Status amLODIPine (NORVASC) 5 MG tablet 06/03/2016 Active levothyroxine (SYNTHROID) 125 MCG tablet 06/04/2016 Active ANDROGEL PUMP 20.25 MG/ACT (1.62%) GEL 5 06/19/2016 Active lisinopril (ZESTRIL) 20 MG tablet 1 03/26/2016 Active metoPROLOL succinate (TOPROL XL) 50 MG 24 hour release tablet 3 03/31/2016 Activ e predniSONE (DELTASONE) 1 MG tablet 06/04/2016 Active cholecalciferol (VITAMIN D3) 1000 UNITS tablet Take 1,000 Units by mouth daily. Active MULTIPLE VITAMIN OR Activ e Active Problems No known active problems Social History Tobacco Use Types Packs/Day Years Used Date Smoking Tobacco: Former Alcohol Use Standard Drinks/Week Comments Yes 0 (1 standard drink = 0.6 oz pur e alcohol) very rare Sex and Gender Information Value Date Recorded Sex Assigned at Not on file Gender Identity Not on file Sexual Orientation Not on file Last Filed Vital Signs Vital Sign Reading Time Taken Comments Blood Pressure 113/60 07/16/2016 11:00 AM CDT Pulse 47 07/16/2016 11:00 AM CDT Temperature 35.7 ??C (96.2 ??F) 07/16/2016 9:11 AM CD T Respiratory Rate 16 07/16/2016 11:00 AM CDT Oxygen Saturation 91% 07/16/2016 11:00 AM CDT Inhaled Oxygen Concentration - - Weight 90.7 kg (200 lb) 06/25/2016 2:33 PM CDT Height 170.2 cm (5' 7) 06/25/2016 2:33 PM CDT Body Mass Index 31.32 06/25/2016 2:33 PM CDT Plan of Treatment Health Maintenance Due Date Last Done Comments Medicare Annual Wellness Visit 1941 Zoster/Shingles (1 of 2) 1991 Pneumococcal 65+ Yrs (1 - PCV) 2006 DTaP/Tdap/Td (2 - Tdap) 08/25/2020 08/25/2010 COVID-19 Vaccine (1 - 2022-2 4 season) 2023 Influenza (#1) 2024 HepA Aged Out No longer eligi ble based on patient's age to complete this topic HepB Aged Out No longer eligi ble based on patient's age to complete this topic Hib Aged Out No longer eligi ble based on patient's age to complete this topic IPV (Polio) Aged Out No longer eligi ble based on patient's age to complete this topic MCV4 Aged Out No longer eligi ble based on patient's age to complete this topic Medical Devices Implanted Type Area Mellowing Machine Operator Device Identifier Shelf Expiration Date Model / Serial / Lot Sut Mini Mitek 2-0 Plus - [id number] Implanted:Qty : 1 on 07/16/2016 by Pako Key MD at [facility] Right: W[employer] J 11/24/2018 [id number] / 0 / [id number] Sut Mini Mitek 2-0 Plus - [id number] Implanted:Qty : 1 on 07/16/2016 by Pako Key MD at [facility] Right: [employer] J 03/24/2019 [id number] / 0 / [id number] K-Wire Trcr Pt 1.6x150 [employer] - [id number] Implanted:Qty : 2 on 07/16/2016 by Pako Key MD at [facility] Right: [employer] [id number] / 0 / 0 04/15/2016 Implanted: (Quantity not on file) Description:Dental Implant Care Teams Chemical Etch Operator Relationship Specialty Start Date End Date Ruiz Frank MD [address] [place] [address] PCP - General Family Practice 06/24/16
[2024-05-15] MEDS: BUPIVACAINE 0.5% 30 ML INJECTION (07:45)
--- NOTE | 2024-05-15 07:52 | SUR.PREOP ---
Surgeon aware of patient's last dose of Eloquis 05/14 @ 0600.
--- NOTE | 2024-05-15 08:12 | PM.ORPRC ---
Procedure Note Date of procedure: 05/15/24 Procedure: PREOPERATIVE DIAGNOSIS: 1. Left carpal tunnel syndrome POSTOPERATIVE DIAGNOSIS: 1. Left carpal tunnel syndrome PROCEDURE: 1. Left open carpal tunnel release SURGEON: Evan Kruger MD. DROP HAMMER SET UP OPERATOR: CLAUDIO Rosas ANESTHESIA: Local anesthetic (50:50 mixture of 1% lidocaine with epi and 0.5% marcaine plain) - 10ml total IMPLANTS: None EBL: 5 mL TOURNIQUET: None COMPLICATIONS: None evident INDICATIONS: The patient is a pleasant 83-year-old male who has experienced left hand numbess/tingling affecting the radial 3.5 digits for multiple months. It has progressively gotten worse. Nonoperative management has been tried and failed, and therefore surgery was recommended. Of note, he took his Eliquis yesterday morning. DESCRIPTION OF PROCEDURE: Following a thorough discussion of risks, benefits, and alternatives consent was obtained and the operative extremity was marked. The patient was brought to the operating room and placed supine on the operating table. Local anesthesia induction was undertaken in preop holding. No antibiotics were administered as this was planned to be a local case only. Proper time-out was performed identifying proper patient, site, and procedure. The operative extremity was prepped and draped in the appropriate sterile fashion using ChloraPrep. An incision was made in line with the radial border of the ring finger beginning 1 cm distal to the distal wrist crease and progressing for another 2.5cm distal. Caution was taken to stay proximal to Deutsch's cardinal line. Sharp incision through the skin, subcutaneous tissue, and palmar fascia was performed. The thenar musculature was bluntly elevated off the transverse carpal ligament. The ligament was directly visualized, and divided sharply with a 15 blade. This was released from its most proximal to the most distal extent. Metzenbaum scissor was also utilized to release the fascia extension proximally. We confirmed complete release of the transverse carpal ligament. Closure was performed with 4-O nylon in interrupted fashion. Soft dressings were applied, and the patient was transferred to the recovery room in stable condition. PLAN: 1. Encourage elevation of the operative extremity. 2. Range of motion of the fingers and hand/wrist as tolerated. 3. Ibuprofen/acetaminophen and/or tramadol as needed for pain control. 4. Follow up with PA visit or nurse visit in 12-16 days for wound check and suture removal.
[2024-05-15] MEDS: BACITRACIN OINTMENT BULK TUBE 1 APPLIC TOPICAL (08:17)
== END 2024-05-15 08:31 | disposition home or self-care (01) ==
LOC: OR 07:33
PROVIDERS: PCP Family Medicine; Visit Provider Orthopaedic Surgery Sports Medicine
PROC: (CPT 64721; principal; 2024-05-15 08:15)
DX: G56.02 Carpal tunnel syndrome, left upper limb (principal)
CPT/HCPCS: 64721; J0665

== ENCOUNTER 2024-11-20 16:04 | Outpatient (CLI) | payer OTHER, MEDICARE, BC, SELFPAY | END 2024-11-20 16:05 | disposition home or self-care (01) | LOC: AMB 11-26 09:55 | PROVIDERS: PCP Family Medicine; Visit Provider Family Medicine | DX: S89.92XA Unspecified injury of left lower leg, initial encounter (principal); V49.40XA Driver injured in collision with unspecified motor vehicles in traffic accident, initial encounter; Y92.410 Unspecified street and highway as the place of occurrence of the external cause | CPT/HCPCS: A0998 ==

== ENCOUNTER 2024-11-20 19:04 | Emergency (ER) | payer OTHER, MEDICARE, BC, SELFPAY ==
--- OUTSIDE RECORDS SUMMARY | 2024-11-20 19:07 | XMS_ITS | Clinical Summary ---
Author Organization [facility] Address [address] [place] [address] Care Team Providers Care Serging Machine Operator Name Role Phone Ruiz Frank MD Primary Care Provider [phone] Source Comments You are receiving this document as you are listed as the primary care provider,follow-up provider, or the patient has been referred to you for consultation.This is in compliance with the Medicare and[facility] Hospital[facility] EHR Incentive Program,which states Providers who transition their patient to another setting of careor provider of care or refers their patient to another provider of care shouldprovide summary care record for each transition of care or referral. Sunrise Allergies Active Allergy Reactions Criticality Noted Date [...] 47 07/16/2016 11:00 AM CDT Temperature 35.7 C (96.2 F) 07/16/2016 9:11 AM CDT Respiratory Rate 16 07/16/2016 11:00 AM CDT [...] Pneumococcal 65+ Yrs (1 - PCV) 2006 RSV (1 - 1-dose 75+ series) 2016 DTaP/Tdap/Td (2 - Tdap) 08/25/2020 08/25/2010 COVID-19 Vaccine ( - 2023-2 5 season) 2024 Influenza (#1) 2024 HepA Aged Out No [...] this topic Medical Devices Implanted Type Area Milk Of Lime Slaker Device Identifier Shelf Expiration Date Model / Serial / Lot Sut Mini Mitek 2-0 Plus - [id number] Implanted:Qty : 1 on 07/16/2016 by Pako Key MD at [facility] Right: WRIST J 11/24/2018 [id number] / 0 / [id number] Sut Mini Mitek 2-0 Plus - [id number] Implanted:Qty : 1 on 07/16/2016 by Pako Key MD at [facility] Right: WRIST J 03/24/2019 [id number] / 0 / [id number] K-Wire Trcr Pt 1.6x150 Nicholas - [id number] Implanted:Qty : 2 on 07/16/2016 by Pako Key MD at [facility] Right: WRIST [employer] [id number] / 0 / 0 04/15/2016 Implanted: (Quantity not on file) Description:Dental Implant Care Teams Serging Machine Operator Relationship Specialty Start Date End Date Ruiz Frank MD [address] [place] [address] PCP - General Family Practice 06/24/16
--- OUTSIDE RECORDS SUMMARY | 2024-11-20 19:07 | XMS_ITS | Clinical Summary ---
Author Organization [facility] Address [place], [place] [address] Care Team Providers Care Tree And Shrub Worker Name Role Phone Jordi Torres Unavailable [phone] iGrish Max MD Unavailable Unavail able Ruiz Frank MD Primary Care Provider Lazaro Carrington MD Unavailable [phone] Allergies Active Allergy Reactions Criticality Noted Date Comments Oxybutynin Other - Describe In Comment Field Dry mouth Trospium Other - Describe In Comment Field Dry mouth Medications Cholecalciferol, Vitamin D3, 2,000 unit tabletIndications: Vitamin D deficiency,Osteopo rosis, unspecified Take 1 tablet by mouth once daily. 0 2 Active durable medical equipment (DME)Indications:S /P foot surgery, right [id number] Squared toe post op shoe. Medium 1 Each 4 Active acetaminophen 325 mg cap Take 2 Tablets by mouth every 6 hours if needed. 3 Active hydrOXYzine pamoate (VISTARIL) 25 mg capsule Take 25 mg by mouth at bedtime if needed. 4 Active traMADoL (ULTRAM) 50 mg tablet Take 50 mg by mouth 2 times daily if needed for Pain. 4 Active lidocaine 4 % topical patch Apply 1 Patch on dry, clean, hairless skin once daily. 4 Active sennosides-docusat e (SENOKOT S) (8.6-50 mg) tablet Take 1 Tablet by mouth 2 times daily if needed for Constipation. 4 Active dilTIAZem (DILACOR XR; DILTIA XT) 240 mg Extended-Release capsuleIndications :Chronic atrial fibrillation (HC) Take 1 Capsule (240 mg) by mouth once daily. 90 Capsule 3 4 Active metoprolol succinate (TOPROL XL) 25 mg Sustained-Release tabletIndications: Essential hypertension Take 1 Tablet (25 mg) by mouth once daily. 90 Tablet 2 4 Active BIPAPIndications:O SA (obstructive sleep apnea) BIPAP machine for home use at pressure: 18/14 cm/H2O , full face mask x1/3month with a full face cushion x1/mo 1 Each 11 4 Active clobetasol (TEMOVATE) 0.05 % creamIndications:R zehra Apply topically to affected area(s) two times daily. For two weeks, then stop. 30 g 4 Active vibegron (Gemtesa) 75 mg tabletIndications: OAB (overactive bladder) TAKE ONE TABLET BY MOUTH ONE TIME DAILY 90 Tablet 3 4 Active predniSONE (DELTASONE) 1 mg tabletIndications: Secondary adrenal insufficiency (HC) Take 3 Tablets (3 mg) by mouth once daily with a meal. May use extra for stress dosing. Total monthly tabs = 100 300 Tablet 3 4 Active levothyroxine (SYNTHROID) 112 mcg tabletIndications: Central hypothyroidism Take 1 Tablet (112 mcg) by mouth before breakfast. 90 Tablet 3 4 Active apixaban (Eliquis) 5 mg tabletIndications: Paroxysmal atrial fibrillation (HC) TAKE ONE TABLET BY MOUTH TWICE DAILY 180 Tablet 3 4 Active triamcinolone 0.1 % ointmentIndication s:Prurigo nodularis,Stasis dermatitis Apply topically to affected area(s) two times daily. 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 Onychomycosis 05/18/2011 Overview (05/18/2011): Left 3 toe: suggest Tea Tree Oil Vitamin D deficiency 01/12/2011 Adrenal insufficiency 04/18/2010 Overview (06/12/2013): Presented with Na of 117 and K of 5.5. Treated with flurocortisone. Cortisol baseline 1>>4 after 30 minutes>>6 after 1 hour Problem is secondary to Pituitary Adenoma - surgically removed. 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 He tells me that this was originally diagnosed in the mid 1990s, when he first saw a neurologist in [place], and then was referred to the [facility] where the diagnosis was apparently confirmed. [...] to correct foot drop. Unspecified hypothyroidism 01/18/2007 Overview (05/06/2015): No Pituitary. DYLAN 05/03/2019 AHI-61 FFM heated hose 01/18/2007 Overview (04/17/2010): Does not use CPAP at home Resolved Problems Problem Noted Date Diagnosed Date Resolved Date Non-pressure chronic ulcer o f skin of other sites limited to breakdown of skin 11/23/202312/13 Thoracic aortic aneurysm, ruptured 03/19/2022 02/03/2023 Osteopenia 10/30/2014 11/26/2020 Overview (09/26/2015): history of osteoporosis-range t-scores; improvement by 2014; fosamax stopped. Plan to recheck dxa in 2 yrs, 2017 Pituitary adenoma 03/29/2013 11/26/2020 Overview (04/10/2013): 2 cm macroadenoma. Resection 04/22/10 (transsphenoidal). Panhypopit, nice response to replacement. Insomnia, unspecified 10/03/20122019 Overview (06/12/2013): Will try Tylenol PM; improved 06/12/2013 Cardiac arrhythmia 10/03/2012 1 Overview (05/06/2015): Holter > 9000 suprventricular ectopies. Saw Card, increased Metoprolol XL to 100, discontinued Chlorthalidone. Neg nucl ST 10/2014. Personal history of colonic polyps 06/02/2012 11/28/2021 Overview (06/17/2017): Colonoscopy 05/2012 diverticulosis repeat in 5 years Colonoscopy 05/2017 Polyps repeat in 5 years Mixed hyperlipidemia 02/01/2012 015 Overview (02/01/2012): Improved with dietary changes Headache(784.0) 10/07/2011 11/24/2019 Overview (05/06/2015): Only since having discontinued Prednisone 08/2011; patient advised to resume a low dose Prednisone and follow up with Dr Payton. 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 Resection 03/2910 Hyponatremia 04/17/2010 09/23/2010 Hyperkalemia 04/17/2010 09/23/2010 Hypochloremia 04/17/2010 09/23/2010 Ingrown nail 01/07/2010 04/17/2010 Plantar fascial fibromatosis 01/07/2010 04/17/2010 Proximal muscle weakness 08/13/2009 Routine general medical exam ination at a health care facility 07/09/2009 05/06/2015 Osteoporosis, unspecified 10/29/2008 Overview (05/30/2012): Started Fosamax 2008; bone mineral density 2010 [...] neoplasm of skin, site unspecified 01/18/2007 11/28/2021 Overview (07/09/2009): Left Face - excised by Dr North Other specified idiopathic p eripheral neuropathy 01/18/2007 05/02/2017 Unspecified anemia 01/18/2007 2 Overview (04/18/2010): Hgb baseline 12.3-12.5 Colonoscopy 02/2007 Recheck 5yrs UGI Endoscopy 02/2007 No Evid Bleed. Unspecified essential hypertension 01/18/2007 02/15/2008 Polymyalgia rheumatica 01/18/200710/07 Overview (01/12/2011): Diagnosed 2006, was started on prednisone 15mg daily now on 1mg daily; now decreased to 4mg/day. 01/12/2011 Encounters Date Type Department Care Team Description 11/09/2024 10:30 AM PALLET ASSEMBLER Office Visit [facility] [address] [place] [address] Hernando Ann, AuD Hearing Aid 11/09/2024 Travel 11/02/2024 1:49 PM PALLET ASSEMBLER - 11/02/2024 11:59 PM PALLET ASSEMBLER Hospital Encounter [facility] [address] [facility] [place] [address] Age-related osteoporosis without current pathological fracture (Primary Dx) 11/02/2024 Travel 10/27/2024 Hospital/[facility] Telephone Encounter [facility] [address] [facility] [address] Ashley Judge RN Pre Procedure (PVP) 10/19/2024 Telephone [facility] [address] [facility] [place] [address] Lazaro Carrington MD Lab 10/19/2024 Orders Only [facility] [address] [facility] [place] [address] Lazaro Carrington MD <No scans attached> 10/19/2024 Telephone [facility] [address] [place] [address] Buffy Baker, STRANDING SUPERVISOR Appointment 10/19/2024 Telephone [facility] [address] [place] [address] Ruiz Frank MD Error-please disregard (ERROR) 10/05/2024 11:30 AM PALLET ASSEMBLER Office Visit [facility] [address] [place] [address] Hernando Ann, AuD Hearing Aid 10/05/2024 Travel 09/27/2024 Telephone [facility] [address] [place] [address] Hernando Ann, AuD 09/08/2024 1:00 PM PALLET ASSEMBLER Office Visit [facility] [address] [facility] [place] [address] Hernando Ann, AuD Hearing Aid (Fitting) 09/08/2024 Travel from Last 3 Months Immunizations Name Administration Dates Next Due AMB INFLUENZA IIV3 (AGE 65+ YRS) PF (Flu Clinic Only) 08/09/2019,08/19/2018,07/09/2017 AMB Influenza, IIV3 (Age >=3 years)(Flu Clinic Only) 08/02/2013,08/21/2008 Amb Influenza, Inact (High-d ose) (Flu Clinic Only) 07/10/2016,07/19/2014 Amb Influenza, Inactivated A IIV4 (Age 65+ Years) Preserv Free 07/18/2020 COVID-19 vaccine (eefoof.com-Bio NTech 30mcg/0.3mL) 12YO+ ANNA-SUCROSE PF, MDV 02/16/2022 COVID-19 vaccine (eefoof.com-Bio NTech 30mcg/0.3mL) PF, MDV 01/02/2021,12/12/2020 Influenza A [...] Recorded Sex Assigned at Not on file Legal Sex Male 6:03 AM PALLET ASSEMBLER Gender Identity Not on file Sexual Orientation Not on file Occupation Industry Job Start Date Job End Date Retired Not on file Not on file Not on file Obstetrics History Last Filed Vital Signs Vital Sign Reading Time Taken Comments Blood Pressure 125/66 11/02/2024 1:58 PM PALLET ASSEMBLER Pulse 77 11/02/2024 1:58 PM PALLET ASSEMBLER Temperature 36.5 C (97.7 F) 12/15/2023 1:21 PM PALLET ASSEMBLER Respiratory Rate 18 11/02/2024 1:58 PM PALLET ASSEMBLER Oxygen Saturation 95% 11/02/2024 1:58 PM PALLET ASSEMBLER Inhaled Oxygen Concentration - - Weight 92.1 kg (203 lb) 05/25/2024 1:19 PM CDT Height 168.2 cm (5' 6.22) 05/02/2024 1:01 PM CD T Body Mass Index 32.55 05/02/2024 1:01 PM CDT Plan of Treatment Upcoming Encounters Date Type Department Care Team (Late st Contact Info) Description 11/30/2024 1:30 PM PALLET ASSEMBLER Office Visit [facility] [address] [place] [address] Hernando Ann AuD [address] [place] [id number] 12/13/2024 8:15 AM PALLET ASSEMBLER Orders Only [facility] [address] [place] [address] Lab, [place] 12/15/2024 2:05 PM PALLET ASSEMBLER Office [facility] [address] [facility] [address] Ruiz Frank MD [address] [place] [address] Health Maintenance Due Date Last Done Comments Influenza for age 65+ 06/25/2024 08/14/2023 , [...] Completed 07/24/2020, 08/25/2010 Pneumococcal series for age 50+ Completed 12/11/2022, 09/18/2014, 06/28/2009, Additional history exists RSV vaccine for adults or Completed 09/18/2023 COVID-19 vaccine series Completed 08/09/20, 08/14/2023, 08/11/2022, Additional history exists Medical Devices Implanted Type Area Chair Upholsterer Device Identifier Shelf Expiration Date Model / Serial / Lot Zoie Hole Cover 14mm Implanted:Qty: 3 on 04/22/2010 at [facility]12 / / [id number] Description:ZOIE HOLE COVER 14MM MEDPOR Procedures Procedure Name Priority Date/Time Associated Diagnosis Comments CREATININE STAT 11/02/2024 2:30 PM PALLET ASSEMBLER Age-related osteoporosis without current pathological fracture CALCIUM STAT 11/02/2024 2:30 PM PALLET ASSEMBLER Age-related osteoporosis without current pathological fracture from Last 3 Months Results * (ABNORMAL) CREATININE (11/02/2024 2:30 PM PALLET ASSEMBLER) eGFR 63(L) >90 mL/min/1.7 3m2 11/02/2024 2:54 PM PALLET ASSEMBLER [facility] Comment:As of 2022, eG FR is calculated by the CKD-EPI creatinine equation without race adjustment. eGFR can be influenced by muscle mass, exercise, and diet. The reported eGFR is an estimation only and is only applicable if the renal function is stable. CREATININE 1.16 0.70 - 1.20 mg/dL 11/02/2024 2:54 PM PALLET ASSEMBLER [facility] Blood BLOOD SPECIMEN / Unknown Venipuncture / Unknown 11/02/2024 2:30 PM PALLET ASSEMBLER 11/02/2024 2:35 PM PALLET ASSEMBLER Lazaro Carrington MD CHEMISTRY Final Re sult [facility] [address] [place] [address] * CALCIUM (11/02/2024 2:30 PM PALLET ASSEMBLER) Pathologist [facility] CALCIUM 9.5 8.8 - 10.4 mg/dL 11/02/2024 2:54 PM PALLET ASSEMBLER [facility] Comment: Reference ranges for this test were updated on 08/29/2024 to reflect our healthy population more accurately. Reference range changes are not retroactively applied to results, but previous results using the same methodology can be interpreted in the context of the new reference range. Blood BLOOD SPECIMEN / Unknown Venipuncture / Unknown 11/02/2024 2:30 PM PALLET ASSEMBLER 11/02/2024 2:35 PM PALLET ASSEMBLER Lazaro Carrington MD CHEMISTRY Final Re sult [facility] [address] [place], [place] [id number] from Last 3 Months Insurance MEDICARE PB ONLY MEDICARE PART B HB ONLY MEDICARE PART A HB ONLY [facility] * Guarantor: ANW CONTRACT,[facility] Account Type Relation to Patient Date of Phone Billing Address Contract [address] [address] Advance Directives Documents on File Type Date Recorded Patient Terrazzo Tile Setter Expl anation Healthcare Directive 11/18/2007 AN ADVA NCE DIRECTIVE/[facility], 11/18/07 * Full Code (Latest Code Status on File) Date Activated Date Inactivated Comments 04/22/2010 1:26 PM 04/26/2010 3:23 PM * Full Code Date Activated Date Inactivated Comments 04/21/2010 3:32 PM 04/22/2010 2:19 AM * DNR Date Activated Date Inactivated Comments 04/17/2010 11:28 AM 04/21/2010 3:32 PM DNR status was discussed at this time. Care Teams Tree And Shrub Worker Relationship Specialty Start Date End Date Ruiz Frank MD [address] [place] [address] PCP - General Family Practice 06/12/13 Jordi Torres [address] [place] [address] Secondary Connector Armature 10/07/11 Girish Max MD [address] [place] [address] Surgery - Orthopedics 10/07/11 Lazaro Carrington MD [address] [place] [address] [facility] [address] [place] [address] Endocrinology 03/18/23
[2024-11-20 19:18] VITALS: BP 154/79; PULSE 93; RESP 16; TEMP 36.5; O2SAT 98; BMI 33.9
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
[2024-11-20 21:29] LABS: Creatinine, Point-of-Care* 1.3 mg/dl (0.6-1.3)
[2024-11-20] MEDS: 0.9 % SODIUM CHLORIDE 500 ML 500 ML IV (22:26)
[2024-11-20 22:35] VITALS: BP 128/81; PULSE 72; RESP 18; TEMP 36.7; O2SAT 94
[2024-11-20] MEDS: ACETAMINOPHEN 500 MG TABLET 1000 MG PO (22:58)
== END 2024-11-20 23:15 | disposition home or self-care (01) ==
PROVIDERS: Emergency Provider Family Medicine; PCP Family Medicine
DX: R07.89 Other chest pain (principal); V43.52XA Car driver injured in collision with other type car in traffic accident, initial encounter
CPT/HCPCS: 71260; 82565; 99284; A9270; J7030; Q9967

== ENCOUNTER 2025-01-03 20:08 | Outpatient (CLI) | payer MEDICARE, BC, SELFPAY | END 2025-01-03 20:09 | disposition home or self-care (01) | LOC: AMB 01-04 10:05 | PROVIDERS: PCP Family Medicine; Visit Provider Emergency Medicine | DX: S29.9XXA Unspecified injury of thorax, initial encounter (principal); W01.0XXA Fall on same level from slipping, tripping and stumbling without subsequent striking against object, initial encounter; Y92.009 Unspecified place in unspecified non-institutional (private) residence as the place of occurrence of the external cause | CPT/HCPCS: A0425; A0427 ==

== ENCOUNTER 2025-01-03 20:45 | Emergency (ER) | payer MEDICARE, BC, SELFPAY ==
[2025-01-03] VITALS (20 sets, daily range): BP systolic 111–156; BP diastolic 75–97; PULSE 85–105; RESP 10–36; TEMP 36.4; O2SAT 92–97; BMI 33.9
--- OUTSIDE RECORDS SUMMARY | 2025-01-03 20:47 | XMS_ITS | Clinical Summary ---
Author Organization [facility] Address [address], [place] [address] Care Team Providers Care Pool Cleaner Name Role Phone Ruiz Frank MD Primary Care Provider [phone] Source Comments You are receiving this document as you are listed as the primary care provider,follow-up provider, or the patient has been referred to you for consultation.This is in compliance with the Medicare and[facility] EHR Incentive Program,which states Providers who transition their patient to another setting of careor provider of care or refers their patient to another provider of care shouldprovide summary care record for each transition of care or referral. Market Track Allergies Active Allergy Reactions Criticality Noted Date Comments Oxycodone-Acetaminophen Nausea And Vomiting 10/2015 Medications amLODIPine (NORVASC) 5 MG tablet 06/03/2016 Active levothyroxine (SYNTHROID) 125 MCG tablet 06/04/2016 Active ANDROGEL PUMP 20.25 MG/ACT (1.62%) GEL 5 06/19/2016 Active lisinopril (ZESTRIL) 20 MG tablet 1 03/26/2016 Active metoPROLOL succinate (TOPROL XL) 50 MG 24 hour release tablet 3 03/31/2016 Acti ve predniSONE (DELTASONE) 1 MG tablet 06/04/2016 Active cholecalciferol (VITAMIN D3) 1000 UNITS tablet Take 1,000 Units by mouth daily. Active MULTIPLE VITAMIN OR Active Active Problems No known active problems Social History Tobacco Use Types Packs/Day Years Used Date Smoking Tobacco: Former Alcohol Use Standard Drinks/Week Comments Yes 0 (1 standard drink = 0.6 oz pur e alcohol) very rare Sex and Gender Information Value Date Recorded Sex Assigned at Not on file Legal Sex Male 1:50 PM CDT Gender Identity Not on file Sexual Orientation [...] Done Comments Medicare Annual Wellness Visit 1940 Pneumococcal 50+ Yrs (1 of 1 - PCV) 1991 Zoster/Shingles (1 of 2) 1991 RSV (1 - 1-dose 75+ series) 2016 [...] on patient's age to complete this topic Meningococcal B Aged Out No longer el igible based on patient's age to complete this topic Medical Devices Implanted Type Area Photo Intern Device Identifier Shelf Expiration Date Model / Serial / Lot Sut Mini Mitek 2-0 Plus - [id number] Implanted:Qty : 1 on 07/16/2016 by Pako Key MD at [employer] Right: WRIST J 11/24/[id number] / 0 / [id number] Sut Mini Mitek 2-0 Plus - [id number] Implanted:Qty : 1 on 07/16/2016 by Pako Key MD at [employer] Right: WRIST J 03/24/[id number] / 0 / [id number] K-Wire Trcr Pt 1.6x150 [employer] - [id number] Implanted:Qty : 2 on 07/16/2016 by Pako Key MD at [employer] Right: W[employer] [id number] / 0 / 0 04/15/2016 Implanted: (Quantity not on file) Description:Dental Implant Insurance MEDICARE [employer] INDEMNITY Care Teams Pool Cleaner Relationship Specialty Start Date End Date uRiz Frank MD [address] [place] [address] PCP - General Family Practice 06/24/16
--- OUTSIDE RECORDS SUMMARY | 2025-01-03 20:47 | XMS_ITS | Clinical Summary ---
Author Organization [facility] Address [address] [place] [address] Care Team Providers Care Physician Primary Care Sports Medicine Name Role Phone Jordi Torres Augusto Unavailable [phone] Girish Max MD Unavailable Unavail able Ruiz Frank MD Primary Care Provider Lazaro Carrington MD Unavailable [phone] Allergies Active Allergy Reactions Criticality Noted Date Comments Oxybutynin Other - Describe In Comment Field Dry mouth Trospium Other - Describe In Comment Field Dry mouth Medications Cholecalciferol, Vitamin D3, 2,000 unit tabletIndications: Vitamin D deficiency,Osteopo rosis, unspecified Take 1 tablet by mouth once daily. 0 05/30/20 12 Active durable medical equipment (DME)Indications:S /P foot surgery, right [id number] Squared toe post op shoe. Medium 1 Each 12/01/19 24 Active hydrOXYzine pamoate (VISTARIL) 25 mg capsule Take 25 mg by mouth at bedtime if needed. 12/04/19 24 Active BIPAPIndications:O SA (obstructive sleep apnea) BIPAP machine for home use at pressure: 18/14 cm/H2O , full face mask x1/3month with a full face cushion x1/mo 1 Each 11 05/02/20 24 Active predniSONE (DELTASONE) 1 mg tabletIndications: Secondary adrenal insufficiency (HC) Take 3 Tablets (3 mg) by mouth once daily with a meal. May use extra for stress dosing. Total monthly tabs = 100 300 Tablet 3 06/06/20 24 Active levothyroxine (SYNTHROID) 112 mcg tabletIndications: Central hypothyroidism Take 1 Tablet (112 mcg) by mouth before breakfast. 90 Tablet 3 06/06/20 24 Active apixaban (Eliquis) 5 mg tabletIndications: Paroxysmal atrial fibrillation (HC) TAKE ONE TABLET BY MOUTH TWICE DAILY 180 Tablet 3 07/14/20 24 Active dilTIAZem (DILACOR XR; DILTIA XT) 240 mg Extended-Release capsuleIndications :Chronic atrial fibrillation (HC) Take 1 Capsule (240 mg) by mouth once daily. 90 Capsule 3 12/15/19 25 Active metoprolol succinate (TOPROL XL) 25 mg Sustained-Release tabletIndications: Essential hypertension Take 1 Tablet (25 mg) by mouth once daily. 90 Tablet 3 12/15/19 25 Active acetaminophen 325 mg cap Take 2 Tablets by mouth every 6 hours if needed. 05/26/20 23 025 Discontin ued(*Med complete/ Regimen complete/ Level of care change) traMADoL (ULTRAM) 50 mg tablet Take 50 mg by mouth 2 times daily if needed for Pain. 12/04/19 24 025 Discontin ued(*Liz ent states no longer taking) lidocaine 4 % topical patch Apply 1 Patch on dry, clean, hairless skin once daily. 12/04/19 24 025 Discontin ued(*Liz ent states no longer taking) sennosides-docusat e (SENOKOT S) (8.6-50 mg) tablet Take 1 Tablet by mouth 2 times daily if needed for Constipation. 12/04/19 24 025 Discontin ued(*Liz ent states no longer taking) dilTIAZem (DILACOR XR; DILTIA XT) 240 mg Extended-Release capsuleIndications :Chronic atrial fibrillation (HC) Take 1 Capsule (240 mg) by mouth once daily. 90 Capsule 3 12/13/19 24 025 Discontin ued(Reord er (E-cancel not sent)) metoprolol succinate (TOPROL XL) 25 mg Sustained-Release tabletIndications: Essential hypertension Take 1 Tablet (25 mg) by mouth once daily. 90 Tablet 2 05/13/20 24 025 Discontin ued(Reord er (E-cancel not sent)) clobetasol (TEMOVATE) 0.05 % creamIndications:R zehra Apply topically to affected area(s) two times daily. For two weeks, then stop. 30 g 05/25/20 24 025 Discontin ued(*Liz ent states no longer taking) vibegron (Gemtesa) 75 mg tabletIndications: OAB (overactive bladder) TAKE ONE TABLET BY MOUTH ONE TIME DAILY 90 Tablet 3 06/08/20 24 025 Discontin ued(*Liz ent states no longer taking) triamcinolone 0.1 % ointmentIndication s:Prurigo nodularis,Stasis dermatitis Apply topically to affected area(s) two times daily. Do not apply to the face 453.6 g 1 08/09/20 24 025 Discontin ued(*Liz ent states no longer taking) Active Problems Problem Noted Date Diagnosed Date Type 2 diabetes mellitus wit h stage 3a chronic kidney disease, without long-term current use of insulin 11/23/2023 Aneurysm of ascending aorta without rupture 05/25 Pituitary adenoma 12/11/2022 Type 2 diabetes mellitus wit hout complication, without long-term current use of insulin 12/01/2021 Diastolic heart failure, unspecified HF chronici ty 11/28/2021 Stage 3a chronic kidney disease 11/28/2021 Age-related osteoporosis wit hout current pathological fracture 07/09/2020 Skin cancer 10/19/2019 Overview (10/19/2019): 09/2019 - LEFT HAND FIFTH METATARSAL, NEEDS ED & C Anemia of unknown etiology 06/21/2019 Sensorineural hearing loss (SNHL) of both ears 0 12/29/2018 Atrial fibrillation 06/25/2017 Overview (02/04/2021): Eliquis 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 He tells me that this was originally diagnosed in the mid , when he first saw a neurologist in [place], and then was referred to the [facility] where the diagnosis was apparently confirmed. [...] sites limited to breakdown of skin 11/23/202312/13 Osteoporosis 06/10/2023 12/15/2024 Thoracic aortic aneurysm, ruptured 03/19/2022 02/03/2023 Parkinson's disease 03/19/2022 12/15/19 Chronic obstructive pulmonar y disease, unspecified COPD type 11/28/2021 12/15/2024 Peripheral sensory neuropathy: Duloxetine. 11/28/2021 12/15/2024 Osteopenia 10/30/2014 11/26/2020 Overview (09/26/2015): history of osteoporosis-range t-scores; improvement by 2014; fosamax stopped. Plan to recheck dxa in 2 yrs, 2017 Pituitary adenoma 03/29/2013 11/26/2020 Overview (04/10/2013): 2 cm macroadenoma. Resection 04/22/10 (transsphenoidal). Panhypopit, nice response to replacement. Insomnia, unspecified 10/03/20122019 Overview (06/12/2013): Will try Tylenol PM; improved 06/12/2013 Cardiac arrhythmia 10/03/2012 Overview (05/06/2015): Holter > 9000 suprventricular ectopies. [...] Encounters Date Type Department Care Team Description 12/29/2024 Telephone [facility] [address] [place] [address] Ruiz Frank MD returning call (return call) 12/22/2024 1:00 PM MANAGER PURCHASING Office Visit [facility] [address] [place] [address] Hernando Ann, AuD Hearing Aid 12/22/2024 Travel 12/15/2024 2:05 PM MANAGER PURCHASING Office Visit [facility] [address] [place] [address] Ruiz Frank MD Medicare ANNUAL (subsequent) Visit (84 year old ) 12/15/2024 Travel 11/30/2024 1:30 PM MANAGER PURCHASING Office Visit [facility] [address] [place] [address] Hernando Ann, AuD Hearing Aid (Fitting) 11/30/2024 Travel 11/20/2024 Orders Only [facility] Scanner 1 scan: (1-Ord) [facility], MULTIPLE LAB RESULTS, 11/20/2024 11/20/2024 Orders Only [facility] Scanner 1 scan: (1-Ord) [facility], CHEST W CON , 11/20/2024 11/09/2024 10:30 AM MANAGER PURCHASING Office Visit [facility] [address] [place] [address] Hernando Ann, AuD Hearing Aid 11/09/2024 Travel 11/02/2024 1:49 PM MANAGER PURCHASING - 11/02/2024 11:59 PM MANAGER PURCHASING Hospital Encounter [facility] [address] [place] [address] Age-related osteoporosis without current pathological fracture (Primary Dx) 11/02/2024 Travel 10/27/2024 Hospital/[facility] Telephone Encounter [facility] [address] [place] [address] Ashley Judge RN Pre Procedure (PVP) 10/19/[address] [facility] [address] [place] [address] Lazaro Carrington MD Lab 10/19/[address] [facility] [address] [facility] [place] [address] Lazaro Carrington MD <No scans attached> 10/19/[address] [facility] [address] [facility] [place] [address] Buffy Baker, SEAT COVERER Appointment 10/19/2024 Telephone [facility] [address] [place] [address] Ruiz Frank MD Error-please disregard (ERROR) 10/05/2024 11:30 AM MANAGER PURCHASING Office Visit [facility] [address] [place] [address] Hernando Ann, AuD Hearing Aid 10/05/2024 Travel from Last 3 Months Immunizations Immunization Administration Dates Next Due AMB INFLUENZA IIV3 [...] 07/31/2021, 07/18/2020,08/09/2019,08/19,07/09/2017,07/10/2016,08/01/2015 ,07/19/2014,08/02/2013,07/07/2012,06/26,07/25/2010,10/16/2009, 8,08/18/2007,2006,08/25/2006,,08/27/2003 Influenza, High-dose Inactivated 09/12/2024,05/2015 Influenza, High-dose Quadriv alent Inactivated 08/14/2023,09/08/2022 Influenza, [...] PHQ-2 Answer Date Recorded PHQ-2 TOTAL SCORE 0 12/15/2024 Social Connections Answer Date Recorded Do you often feel lonely or isolated from those around you? 0 12/15/2024 Financial Resource Strain Answer Date R ecorded Difficulty of Paying Living Expenses 3 12/15/2024 Difficulty of Paying Living Expenses Not on file 12/15/2024 Food Insecurity Answer Date Recorded Do you worry your food will run out before you are able to buy more? 1 12/15/2024 Transportation Needs Answer Date Record ed Does lack of transportation keep you from medica l appointments? 1 12/15/2024 Does lack of transportation keep you from work, meetings or getting things that you need? 1 12/15/2024 Housing Stability Answer Date Recorded What is your housing situation today? 1 12/15/2024 Utilities Answer Date Recorded Do you have trouble paying f or utilities (for example, heat, electricity, water, phone)? 1 12/15/2024 Sex and Gender Information Value Date Recorded Sex Assigned at Not on file Legal Sex Male 6:03 AM MANAGER PURCHASING Gender Identity Not on file Sexual Orientation Not on file Occupation Industry Job Start Date Job End Date Retired Not on file Not on file Not on file Obstetrics History Last Filed Vital Signs Vital Sign Reading Time Taken Comments Blood Pressure 133/75 12/15/2024 2:13 PM MANAGER PURCHASING Pulse 81 12/15/2024 2:13 PM MANAGER PURCHASING Temperature 36.5 C (97.7 F) 12/15/2023 1:21 PM MANAGER PURCHASING Respiratory Rate 18 11/02/2024 1:58 PM MANAGER PURCHASING Oxygen Saturation 96% 12/15/2024 2:13 PM MANAGER PURCHASING Inhaled Oxygen Concentration - - Weight 97.1 kg (214 lb) 12/15/2024 2:13 PM MANAGER PURCHASING Height 170 cm (5' 6.93) 12/15/2024 2:13 PM MANAGER PURCHASING Body Mass Index 33.59 12/15/2024 2:13 PM MANAGER PURCHASING Plan of Treatment Upcoming Encounters Date Type Department Care Team (Late st Contact Info) Description 02/09/2025 1:15 PM CDT Office Visit [facility] [address] [place] [address] Ruiz Frank MD [address] [place] [address] Health Maintenance Due Date Last Done Comments COVID-19 vaccine series ( season) 2025 08/09/2024, 08/14/2023, 08/11/2022, Additional history exists BMI (ht and wt on same day) for age 18+ 12/15/2025 12/15/2024, 05/02/2024, 12/13/2023, Additional history exists Depression screening for age 12+ 12/15/2025 12/15/2024, 12/15/2023, 12/14/2023, Additional history exists Medicare Wellness for age 65+ 12/16/2025, 12/13/2023, 12/11/2022, Additional history exists Tetanus booster 07/24/2030 07/24/2020, 10/2009, 10/20/2000, Additional history exists Zoster (shingles) series for age 50+ Completed 06/25/2018, 03/16/2018, 12/28/2017, Additional history exists Tdap Completed 07/24/2020, 08/25/2010 Pneumococcal series for age 50+ Completed 12/11/2022, 09/18/2014, 06/28/2009, Additional history exists RSV vaccine for adults or Completed 09/18/2023 Influenza Vaccine Completed 09/12/2024, , 07/31/2021, Additional history exists Medical Devices Implanted Type Area Patch Driller Device Identifier Shelf Expiration Date Model / Serial / Lot Zoie Hole Cover 14mm Implanted:Qty: 3 on 04/22/[address] [facility] 7512 / / [id number] Description:ZOIE HOLE COVER 14MM MEDPOR Procedures Procedure Name Priority Date/Time Associated Diagnosis Comments LIPID PANEL W REFLEX MEASURED LDL Routine 12/15/2024 2:57 PM MANAGER PURCHASING Type 2 diabetes mellitus with stage 3a chronic kidney disease, without long-term current use of insulin (HC) VITAMIN D 25 (DEFICIENCY) Routine 12/15/2024 2:57 PM MANAGER PURCHASING Vitamin D deficiency BASIC METABOLIC PANEL Routine 12/15/2024 2:57 PM MANAGER PURCHASING Type 2 diabetes mellitus with stage 3a chronic kidney disease, without long-term current use of insulin (HC) HEMOGLOBIN A1C MONITORING (POCT) Routine 12/15/2024 2:55 PM MANAGER PURCHASING Type 2 diabetes mellitus with stage 3a chronic kidney disease, without long-term current use of insulin (HC) SCAN-LABORATORY REPORT 5 12:00 AM MANAGER PURCHASING SCAN-CT INTERPRETATION 5 12:00 AM MANAGER PURCHASING CREATININE STAT 11/02/2024 2:30 PM MANAGER PURCHASING Age-related osteoporosis without current pathological fracture CALCIUM STAT 11/02/2024 2:30 PM MANAGER PURCHASING Age-related osteoporosis without current pathological fracture from Last 3 Months Results * (ABNORMAL) LIPID PANEL W REFLEX MEASURED LDL (12/15/2024 2:57 PM MANAGER PURCHASING) [facility] CHOLESTEROL, TOTAL 179 <200 mg/dL [facility] HDL CHOLESTEROL 54 > OR = 40 mg/dL [facility] TRIGLYCERIDES 82 <150 mg/dL [facility] LDL-CHOLESTEROL 108(H) mg/dL (calc) [facility] Comment: Reference range: <100 Desirable range <100 mg/dL for primary prevention; <70 mg/dL for patients with CHD or diabetic patients with > or = 2 CHD risk factors. LDL-C is now calculated using the Yasmine calculation, which is a validated novel method providing better accuracy than the Friedewald equation in the estimation of LDL-C. Sergo SS et al. RIA. 2013;310(19): 5987-8483 (http://education.QuadROI/faq/NXR494) CHOL/HDLC RATIO 3.3 <5.0 (calc) [facility] NON HDL CHOLESTEROL 125 <130 mg/dL (calc) [facility] Comment: For patients with diabetes plus 1 major ASCVD risk factor, treating to a non-HDL-C goal of <100 mg/dL (LDL-C of <70 mg/dL) is considered a therapeutic option. Blood BLOOD SPECIMEN / Unknown 12/15/2024 2:57 PM MANAGER PURCHASING 12/15/2024 2:57 PM MANAGER PURCHASING us Ruiz Frank MD CHEMISTRY Final Result Performing Organization Address [facility]/ZIP Co de Phone Number [facility] [address] [place] [address], [facility] [address] [place] [address] * VITAMIN D 25 (DEFICIENCY) (12/15/2024 2:57 PM MANAGER PURCHASING) Pathologist [facility] VITAMIN D,25-OH,TOTAL,IA 37 30 - 100 ng/mL [facility] Comment: Vitamin D Status 25-OH Vitamin D: Deficiency: <20 ng/mL Insufficiency: 20 - 29 ng/mL Optimal: > or = 30 ng/mL For 25-OH Vitamin D testing on patients on D2-supplementation and patients for whom quantitation of D2 and D3 fractions is required, the [facility](TM) 25-OH VIT D, (D2,D3), LC/MS/MS is recommended: order code 46701 (patients >2yrs). See Note 1 Note 1 For additional information, please refer to http://education.QuadROI/faq/XPR634 (This link is being provided for informational/ educational purposes only.) Blood BLOOD SPECIMEN / Unknown 12/15/2024 2:57 PM MANAGER PURCHASING 12/15/2024 2:57 PM MANAGER PURCHASING us Ruiz Frank MD SEND OUTS Final Result [facility] [address] [facility] [place] [address], [place] [phone] [facility] [address] [place] [address] * BASIC METABOLIC PANEL (12/15/2024 2:57 PM MANAGER PURCHASING) [facility] GLUCOSE 99 65 - 99 mg/dL [facility] Comment: Fasting reference interval UREA NITROGEN (BUN) 24 7 - 25 mg/dL [facility] CREATININE 1.13 0.70 - 1.22 mg/dL [facility] EGFR 64 > OR = 60 mL/min/1. 73m2 [facility] BUN/CREATININE RATIO SEE NOTE: 6 - 22 (calc) [facility] Comment: Not Reported: BUN and Creatinine are within reference range. SODIUM 140 135 - 146 mmol/L [facility] POTASSIUM 5.2 3.5 - 5.3 mmol/L [facility] CHLORIDE 105 98 - 110 mmol/L [facility] CARBON DIOXIDE 27 20 - 32 mmol/L [facility] ELECTROLYTE BALANCE 8 7 - 17 mmol/L (calc) [facility] CALCIUM 9.7 8.6 - 10.3 mg/dL [facility] Blood BLOOD SPECIMEN / Unknown 12/15/2024 2:57 PM MANAGER PURCHASING 12/15/2024 2:57 PM MANAGER PURCHASING Ruiz Frank MD CHEMISTRY Final Result [facility] [address] [place] [address], [facility] [address] [place] [address] * HEMOGLOBIN A1C MONITORING (POCT) (12/15/2024 2:55 PM MANAGER PURCHASING) [facility] POC HEMOGLOBIN A1C 5.8 <6.0 % OF TOTAL HGB [facility] Comment: Any point of care results exhibiting inconsistency with the patient's clinical status should be repeated using a different testing method. Blood BLOOD SPECIMEN / Unknown 12/15/2024 2:55 PM MANAGER PURCHASING 12/15/2024 2:56 PM MANAGER PURCHASING us Ruiz Frank MD CHEMISTRY Final Result Performing Organization Address City/[facility]/ZIP Co de Phone Number [facility] [address] [place] [address], [place] [phone] [facility] [address] [place] [address] * SCAN-LABORATORY REPORT (11/20/2024 12:00 AM MANAGER PURCHASING) us Scanner OTHER Final Result * SCAN-CT INTERPRETATION (11/20/2024 12:00 AM MANAGER PURCHASING) Anatomical Region Laterality Modality Other us Scanner OTHER Final Result * (ABNORMAL) CREATININE (11/02/2024 2:30 PM MANAGER PURCHASING) eGFR 63(L) >90 mL/min/1.7 3m2 11/02/2024 2:54 PM MANAGER PURCHASING [facility] Comment:As of 2022, eG FR is calculated by the CKD-EPI creatinine equation without race adjustment. eGFR can be influenced by muscle mass, exercise, and diet. The reported eGFR is an estimation only and is only applicable if the renal function is stable. CREATININE 1.16 0.70 - 1.20 mg/dL 11/02/2024 2:54 PM MANAGER PURCHASING [facility] Blood BLOOD SPECIMEN / Unknown Venipuncture / Unknown 11/02/2024 2:30 PM MANAGER PURCHASING 11/02/2024 2:35 PM MANAGER PURCHASING us Lazaro Carrington MD CHEMISTRY Final Re sult [facility] [address] [place] [address] * CALCIUM (11/02/2024 2:30 PM MANAGER PURCHASING) CALCIUM 9.5 8.8 - 10.4 mg/dL 11/02/2024 2:54 PM MANAGER PURCHASING [facility] Comment: Reference ranges for this test were updated on 08/29/2024 to reflect our healthy population more accurately. Reference range changes are not retroactively applied to results, but previous results using the same methodology can be interpreted in the context of the new reference range. Blood BLOOD SPECIMEN / Unknown Venipuncture / Unknown 11/02/2024 2:30 PM MANAGER PURCHASING 11/02/2024 2:35 PM MANAGER PURCHASING Lazaro Carrington MD CHEMISTRY Final Re sult [facility] [address] [place] [address] from Last 3 Months Insurance MEDICARE PB ONLY MEDICARE PART B HB ONLY MEDICARE PART A HB ONLY [facility] * Guarantor: ANW CONTRACT,[facility] Account Type Relation to Patient Date of Phone Billing Address Contract [address] [id number] Advance Directives Documents on File Type Date Recorded Patient Sap Business Analyst Expl anation Healthcare Directive 11/18/2007 AN ADVA NCE DIRECTIVE/[facility], 11/18/07 * Full Code (Latest Code Status on File) Date Activated Date Inactivated Comments 04/22/2010 1:26 PM 04/26/2010 3:23 PM * Full Code Date Activated Date Inactivated Comments 04/21/2010 3:32 PM 04/22/2010 2:19 AM * DNR Date Activated Date Inactivated Comments 04/17/2010 11:28 AM 04/21/2010 3:32 PM DNR status was discussed at this time. Care Teams Physician Primary Care Sports Medicine Relationship Specialty Start Date End Date Ruiz Frank MD [address] [place] [address] PCP - General Family Practice 06/12/13 Jordi Torres [address] [place] [address] Candy Vendor 10/07/11 Girish Max MD [address] [place] [address] Surgery - Orthopedics 10/07/11 Lazaro Carrington MD [address] [place] [id number] Endocrinology 03/18/23
--- NOTE | 2025-01-03 20:51 | CRLHL7_ITS ---
For Patients: As a result of the Century Cures Act, medical imaging exams and procedure reports are released immediately into your electronic medical record. You may view this report before your referring provider. If you have questions, please contact your health care provider. INDICATION: Chest pain. TECHNIQUE: Chest 1 views. COMPARISON: None. FINDINGS: Cardiovascular and mediastinum: Heart size and vasculature are normal in caliber and appearance. Lungs and pleural spaces: Bibasilar atelectasis. No sign of infiltrate or mass. No sign of pleural effusion. No pneumothorax. Bones and soft tissues: Few chronic right rib deformities.. IMPRESSION: No acute or significant findings. Dictated by Tim Henry MD @ 01/03/2025 9:49:16 PM (Electronically Signed)
--- NOTE | 2025-01-03 21:04 | CRLHL7_ITS ---
For Patients: As a result of the Century Cures Act, medical imaging exams and procedure reports are released immediately into your electronic medical record. You may view this report before your referring provider. If you have questions, please contact your health care provider. INDICATION: Fall, left lateral chest pain, left lower quadrant pain. TECHNIQUE: CT chest, abdomen and pelvis acquired with 100 cc of Isovue 370 IV contrast. COMPARISON: Chest CT 11/20/2024. FINDINGS: CHEST: Cardiovascular structures: Heart size is normal. Thoracic aorta and main pulmonary artery are normal in caliber. Coronary artery and thoracic aorta atherosclerotic calcification. Mediastinum and oscar: No mass or adenopathy. Lungs and pleura: Mild bilateral lower lobe atelectasis versus scarring. No consolidation, pleural effusion, pneumothorax, or suspicious nodule. Chest wall and axilla: No mass or adenopathy. Bones: No acute fracture or dislocation. Old right 5th and 6th rib fractures. ABDOMEN AND PELVIS: Liver: Unremarkable. No sign of acute injury. Gallbladder and bile ducts: Status post cholecystectomy. No abnormal biliary ductal dilatation. Pancreas: Unremarkable. Spleen: Unremarkable. No sign of acute injury. Adrenal glands: Unremarkable. Kidneys: Unremarkable. GI tract: Diverticulosis without pericolonic inflammation. No obstruction. Normal appendix. Vascular structures: Normal caliber abdominal aorta with mild atherosclerotic calcification. Mesenteric arteries are patent. Lymph nodes: Unremarkable. Miscellaneous: Unremarkable. No free air or significant free fluid. Pelvic Organs: Unremarkable. Bones: No acute fracture or dislocation. IMPRESSION: 1. No evidence of an acute traumatic injury within the chest, abdomen, or pelvis. 2. No acute findings. 3. Diverticulosis without evidence of diverticulitis. Please note that all CT scans at this facility use dose modulation, iterative reconstruction, and/or weight-based dosing when appropriate to reduce radiation dose to as low as reasonably achievable. Dictated by Lenny Montes MD @ 01/03/2025 10:22:47 PM (Electronically Signed)
[2025-01-03] MEDS: ACETAMINOPHEN 500 MG TABLET 1000 MG PO (21:08)
[2025-01-03 21:18] LABS: Basophils Absolute Auto 0.01 K/uL (0.00-0.30); Basophils Percent Auto 0.1 % (0.0-3.0); Creatinine, Point-of-Care* 1.3 mg/dl (0.6-1.3); Eosinophils Absolute Auto 0.11 K/uL (0.00-0.50); Eosinophils Percent Auto 1.4 % (0.0-7.0); Hematocrit 40.1 % (37.0-53.0); Hemoglobin* 12.8 gm/dL (13.5-17.5); Immature Granulocytes Abs Auto 0.01 K/uL (0.00-0.30); Immature Granulocytes Pct Auto 0.1 %; Lymphocytes Absolute Auto 2.21 K/uL (0.90-2.90); Lymphocytes Percent Auto 28.3 % (20-44); Mean Corpuscular HGB Conc 32 gm/dL (32-36); Mean Corpuscular Hemoglobin 31 pg (26-34); Mean Corpuscular Volume 96 fL (80-100); Monocytes Percent Auto 9.1 % (0.0-11.0); Neutrophils Absolute Auto 4.76 K/uL (1.7-7.0); Platelet Count* 199 K/uL (140-440); RDW Coefficient of Variation % 13.1 % (11.5-15.5); Red Blood Count 4.19 m/uL (4.30-5.90); White Blood Count* 7.81 K/uL (4.50-11.00)
[2025-01-03 21:23] LABS: Slide Review Reflex No
--- NOTE | 2025-01-03 21:37 | ED_ITS ---
HPI - General Adult General Date Seen: 01/03/25 Chief complaint: Fall/Minor Trauma Stated complaint: Fall Time Seen by Provider: 01/03/25 20:59 History of Present Illness HPI narrative: Very pleasant 84-year-old gentleman with a past medical history of atrial fibr illation (on Eliquis), adrenal insufficiency, hypothyroidism, COPD, hypertension, history of hyponatremia, is brought to the ER tonight by EMS from his home for evaluation of left anterolateral lower rib pain after a fall. He says he was walking up the steps earlier today around 4:00 p.m. when he fell forward and hit his chest against the steps or possibly some pains that were laying on the steps. It started having some pain after he fell but initially was not too bad. He was able to eat dinner. He has been having pain that is sharp in nature in that left lower ribcage where he hit ever since then. He tried to lay down for a nap this evening but his pain got worse, especially with breathing. He did not think he be able to make it through the entire night resting because of the amount of pain he was in so he called the ambulance. His is at home and cannot visit in her in the ER because she has congestive heart failure and she does have home care. His daughter, who is a nurse from the [facility], will be coming. He is confident that he did not hit his head. He does not have a headache. No neck pain. No upper extremity, shoulder, or arm pain. He denies any back pain. No abdominal pain. No lower extremity pain or hip pain. His only injuries in his left lateral rib cage. Related Data Home Medications ?Medication ?Instructions ?Recorded ?Confirmed apixaban 5 mg tablet (Eliquis) 5 mg PO BID 12/02/22 08/15/24 diltiazem HCl 240 mg 240 mg PO DAILY 12/02/22 08/15/24 capsule,extended release 24 hr, controlled metoprolol succinate 25 mg 25 mg PO DAILY 12/02/22 08/15/24 tablet,extended release 24 hr prednisone 1 mg tablet 3 mg PO DAILY 01/06/23 08/15/24 cholecalciferol (vitamin D3) 50 2,000 unit PO DAILY 05/26/23 08/15/24 mcg (2,000 unit) capsule levothyroxine 112 mcg tablet 112 mcg PO QAM 12/03/23 08/15/24 vibegron 75 mg tablet (Gemtesa) 75 mg PO DAILY 05/09/24 08/15/24 Previous Rx's ?Medication ?Instructions ?Recorded acetaminophen 500 mg tablet 650 mg (1.3 x 500 mg) PO Q6H #90 12/04/23 tabs Allergies Allergy/AdvReac Type Severity Reaction Status Date / Time oxybutynin Allergy dry mouth Verified 01/03/25 21:35 oxycodone Allergy Vomiting Verified 01/03/25 21:35 trospium Allergy dry mouth Verified 01/03/25 21:35 [facility] Medical History Hemarthrosis, right knee ?M25.061 - Hemarthrosis, right knee (ICD-10) Injury of knee ?S89.90XA - Unspecified injury of unspecified lower leg, initial encounter (ICD-10) 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) Disability of walking ?R26.2 - Difficulty in walking, not elsewhere classified (ICD-10) Chronic anticoagulation ?Z79.01 - tiller man (current) use of anticoagulants (ICD-10) Atrial fibrillation ?I48.91 - Unspecified atrial fibrillation (ICD-10) Weakness ?R53.1 - Weakness (ICD-10) Preoperative testing ?Z01.818 - Encounter for other preprocedural examination (ICD-10) Laceration Infection due to severe acute respiratory syndrome coronavirus 2 (SARS-CoV-2) ?U07.1 - COVID-19 (ICD-10) Hyponatremia ?E87.1 - Hypo-osmolality and hyponatremia (ICD-10) Fracture of rib ?S22.39XA - Fracture of one rib, unspecified side, initial encounter for closed fracture (ICD-10) Delirium ?R41.0 - Disorientation, unspecified (ICD-10) Contusion of left knee ?S80.02XA - Contusion of left knee, initial encounter (ICD-10) Confusion ?R41.0 - Disorientation, unspecified (ICD-10) Chronic obstructive pulmonary disease ?J44.9 - Chronic obstructive pulmonary disease, unspecified (ICD-10) Acute kidney injury ?N17.9 - Acute kidney failure, unspecified (ICD-10) FH: hypertension ?Z82.49 - Family history of ischemic heart disease and other diseases of the circulatory system (ICD-10) Pituitary adenoma ?D35.2 - Benign neoplasm of pituitary gland (ICD-10) Skin cancer ?C44.90 - Unspecified malignant neoplasm of skin, unspecified (ICD-10) Lumbar back pain ?M54.50 - Low back pain, unspecified (ICD-10) Osteoporosis ?M81.0 - Age-related osteoporosis without current pathological fracture (ICD- 10) Atrial fibrillation ?I48.91 - Unspecified atrial fibrillation (ICD-10) Hypertension ?I10 - Essential (primary) hypertension (ICD-10) Sleep apnea ?G47.30 - Sleep apnea, unspecified (ICD-10) Hypothyroid ?E03.9 - Hypothyroidism, unspecified (ICD-10) Surgical History H/O wrist surgery (~06/2016) ?Z98.890 - Other specified postprocedural states (ICD-10) History of arthroscopy of left shoulder (03/19/05) ?Z98.890 - Other specified postprocedural states (ICD-10) S/P trigger finger release (10/05/08) ?Z98.890 - Other specified postprocedural states (ICD-10) Status post right rotator cuff repair (10/21/18) ?Z98.890 - Other specified postprocedural states (ICD-10) History of foot surgery (03/30/22) ?Z98.890 - Other specified postprocedural states (ICD-10) H/O arthroscopy of right knee (01/13/07) ?Z98.890 - Other specified postprocedural states (ICD-10) 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) ?Z96.652 - Presence of left artificial knee joint (ICD-10) History of repair of hiatal hernia ?Z98.890 - Other specified postprocedural states (ICD-10) ?Z87.19 - Personal history of other diseases of the digestive system (ICD-10) History of cholecystectomy ?Z90.49 - Acquired absence of other specified parts of digestive tract (ICD- 10) Family History Other High blood pressure Social History Narrative: [place]. He lives with his . is healthcare power of criminal attorney. Code status is full. He quit smoking in 1986. He rarely drinks alcohol What is your current living situation?: I presently have a place to live Problems where you live: no known problems Problems where you live details: N/A In the past 12 months, utilities in danger of being shut off: no In past 12 months, lack of transportation kept you from medical appts, meetings, work, or getting things needed for daily living: no In the past 12 mos, have been you worried that your food would run out before you had money to buy more?: never true In the past 12 mos, the food you bought just didn't last and you didn't have money to buy more?: never true Highest level of school completed/degree received: Bachelor's degree Smoking Status: Former smoker What tobacco products do you use: cigarettes Smoking quit date/years: >15 years ago Do you use any of these nicotine containing products: None Second hand tobacco smoke exposure: No How often do you have a drink containing alcohol: monthly or less Alcohol type: beer How many standard drinks containing alcohol do you have on a typical day: 1 or 2 How often do you have six or more drinks on one occasion: Never AUDIT-C Alcohol total score: 1 Non-prescribed substance use: denies use Caffeine: Yes How often does anyone, including family, friends and others, physically hurt you : never How often does anyone, including family, friends and others, insult or talk down to you: never How often does anyone, including family, friends and others, threaten you with harm: never How often does anyone, including family, friends and others, scream or curse at you: never service: Yes Exam Narrative: Exam Narrative: Primary Survey: A- patent. Speaking clearly. Phonation normal. No stridor. B- breathing easily. Lung sounds bilateral rales. Oxygen saturation normal on room air . Quite tender without crepitus on the left lateral lower ribs. C- no active bleeding. Blood pressure stable. Symmetric pulses and cap refill in 4 extremities. Tender in the left upper quadrant D- alert and oriented x3. GCS 15. No focal deficits. Constitutional: Appears well-developed and well-nourished. Alert. Conversant. Non toxic. HENT: Head: Atraumatic. No depressed skull fracture, Raccoon Eyes, Terry's sign, or hemotympanum. Face normal. TMs normal Nose: Nose normal. Mouth/Throat: Oral mucosa is clear and moist. no trismus. Pharynx normal. Tonsils symmetric. No tonsillar enlargement, erythema, or exudate. Eyes: Conjunctivae normal. EOM normal. Pupils equal, round, and reactive to light. No scleral icterus. Neck: Normal range of motion. Neck supple. No tracheal deviation present. Cardiovascular: Normal rate, regular rhythm. No gallop. No friction rub. No murmur heard. Symmetric radial artery pulses Pulmonary/Chest: Effort normal. No stridor. No respiratory distress. No wheezes. Bibasilar r ales. No rhonchi . Marked left lower lateral chest wall tenderness. No bruising. No crepitus Abdominal: Soft. Bowel sounds normal. No distension. No mass. Left upper quad tenderness. No rebound. No guarding. Musculoskeletal: RUE: Normal range of motion. No tenderness. No deformity LUE: Normal range of motion. No tenderness. No deformity RLE: Normal range of motion. No edema. No tenderness. No deformity LLE: Normal range of motion. No edema. No tenderness. No deformity Neurological: Alert and oriented to person, place, and time. Normal strength. CN II-VII intact. No sensory deficit. GCS eye subscore is 4. GCS verbal subscore is 5. GCS motor subscore is 6. Normal coordination Skin: Skin is warm and dry. No rash noted. No pallor. Normal capillary refill. Psychiatric: Normal mood. Normal affect. Very polite. Initially declines offered pain medications but then accepts at least Tylenol. The Const: Vital Signs, click to edit/add: Vital Signs - 24 hr 01/03/25 20:50 01/03/25 20:54 01/03/25 20:55 Temperature 97.6 F Pulse Rate 88 91 Pulse Rate [Pulse Oximeter] 85 Respiratory Rate 16 30 H 24 Blood Pressure 156/95 H Blood Pressure [Le ft Upper Arm] 156/95 H Pulse Oximetry 97 95 95 Oxygen Delivery Me thod Room Air 01/03/25 21:00 01/03/25 21:07 01/03/25 21:15 Temperature Pulse Rate 96 94 Pulse Rate [Pulse Oximeter] Respiratory Rate 18 10 L 21 Blood Pressure 141/97 H Blood Pressure [Le ft Upper Arm] Pulse Oximetry 96 94 Oxygen Delivery Me thod 01/03/25 21:40 01/03/25 21:43 01/03/25 21:44 Temperature Pulse Rate 98 100 101 H Pulse Rate [Pulse Oximeter] Respiratory Rate 26 H 36 H Blood Pressure 131/92 H 123/88 Blood Pressure [Le ft Upper Arm] Pulse Oximetry 95 95 96 Oxygen Delivery Me thod 01/03/25 21:45 01/03/25 22:00 01/03/25 22:02 Temperature Pulse Rate 105 H 93 94 Pulse Rate [Pulse Oximeter] Respiratory Rate 27 H 29 H 25 H Blood Pressure 121/85 Blood Pressure [Le ft Upper Arm] Pulse Oximetry 92 96 94 Oxygen Delivery Me thod 01/03/25 22:15 01/03/25 22:30 01/03/25 22:32 Temperature Pulse Rate 91 Pulse Rate [Pulse Oximeter] Respiratory Rate 27 H 36 H 17 Blood Pressure 111/75 Blood Pressure [Le ft Upper Arm] Pulse Oximetry 95 Oxygen Delivery Me thod 01/03/25 22:45 01/03/25 23:00 01/03/25 23:02 Temperature Pulse Rate Pulse Rate [Pulse Oximeter] Respiratory Rate 24 17 15 Blood Pressure 116/83 Blood Pressure [Le ft Upper Arm] Pulse Oximetry Oxygen Delivery Me thod 01/03/25 23:03 01/03/25 23:15 Temperature Pulse Rate Pulse Rate [Pulse Oximeter] Respiratory Rate 15 17 Blood Pressure Blood Pressure [Le ft Upper Arm] Pulse Oximetry Oxygen Delivery Me thod Course Course ED Course: Patient was brought in by EMS as a red medical because of his chest pain after the fall on Eliquis. A pre-hospital T TA was called The patient arrived and was alert, conversant, breathing easily, with normal oxygen sats. ER nurses asked to discontinue the TT a, which I felt was reasonable. Initial vital signs were normal. Initial E fast exam showed positive lung sliding on the left, no definite pleural effusion, no definite rib fracture, and no free fluid in the abdomen or pelvis. Stat portable chest x-ray was obtained and reviewed by me at the bedside showed no evidence for any definite hemothorax/ pleural effusion, pneumothorax. No definite displaced rib fracture. Will obtain CT scan given live in sensitivity of the x-ray for fracture and also because of his left upper quadrant pain to evaluate for splenic injury. Recheck-CBC came back with a normal white count, normal platelet count. Hemoglobin is mildly anemic at 12.8, similar to baseline, previous was 13.1. Creatinine was normal/baseline. Vital Signs Vital signs: Initial Vital Signs Temperature 97.6 F 01/03/25 20:50 Temperature Source Temporal Artery Scan 01/03/25 20:50 Pulse Rate 85 01/03/25 20:50 Respiratory Rate 16 01/03/25 20:50 Blood Pressure 156/95 H 01/03/25 20:50 Blood Pressure Mean 115 H 01/03/25 20:50 Blood Pressure Position Sitting 01/03/25 20:50 Pulse Oximetry 97 01/03/25 20:50 Oxygen Delivery Method Room Air 01/03/25 20:50 Vital Signs Temperature 97.6 F 01/03/25 20:50 Pulse Rate 85 01/03/25 20:50 Respiratory Rate 16 01/03/25 20:50 Blood Pressure 156/95 H 01/03/25 20:50 Pulse Oximetry 97 01/03/25 20:50 Oxygen Delivery Method Room Air 01/03/25 20:50 Temperature 97.6 F 01/03/25 20:50 Pulse Rate 91 01/03/25 22:15 Respiratory Rate 17 01/03/25 23:15 Blood Pressure 116/83 01/03/25 23:02 Pulse Oximetry 95 01/03/25 22:15 Oxygen Delivery Method Room Air 01/03/25 20:50 Medications Administered Medications: Discontinued Medications Generic Name Dose Route Start Last Admin Trade Name Freq PRN Reason Stop Dose Admin Acetaminophen 1,000 mg 01/03/25 21:00 01/03/25 21:08 Acetaminophen 500 Mg Tablet PO 01/03/25 21:01 1,000 mg ONCE ONE Administration Medical Decision Making MDM Narrative Medical decision making narrative: Very pleasant 84-year-old gentleman who is on Eliquis for stroke prophylaxis with AFib presenting to the ER today by EMS from his home for evaluation of left lateral rib pain. He actually fell walking up the steps today and struck his ribs against the bottom end of his 's cane. He is clear and confident that he did not hit his head or injure his neck. He has no injury other than his left ribs. Initial chest x-ray any fast exam were normal. However had fairly significant tenderness in that area. Concern was for possible occult rib fracture, and more importantly possible underlying lung injury such as hemothorax, pneumothorax, pulmonary contusion. He was also tender in the left upper quadrant on my exam. Therefore CT scan was obtained. Labs are reassuring and CT scan chest/abdomen/pelvis came back reassuring. No evidence for any acute traumatic injury. The patient's daughter, who is a nurse, arrived and was at his bedside. They were interacting pleasantly. Discussed results with the patient and his daughter. Patient's pain was improved, although not resolved after Tylenol. He feels comfortable that he will be able to get a good night's rest tonight while taking Tylenol but agrees to receive us prescription for Percocet that he can use only if needed. Discussed the risks of opiate pain killers including dizziness, drowsiness, confusion, constipation, addiction. Questions answered and return precautions given Lab Data Labs: Lab Results 01/03/25 Range/Units 21:12 WBC 7.81 (4.50-11.00) K/uL RBC 4.19 L (4.30-5.90) m/uL Hgb 12.8 L (13.5-17.5) gm/dL Hct 40.1 (37.0-53.0) % MCV 96 (80-100) fL MCH 31 (26-34) pg MCHC 32 (32-36) gm/dL RDW Coeff of Mike 13.1 (11.5-15.5) % Plt Count 199 (140-440) K/uL Neut % (Auto) 61.0 (42.0-72.0) % Lymph % (Auto) 28.3 (20-44) % [place] % (Auto) 9.1 (0.0-11.0) % Eos % (Auto) 1.4 (0.0-7.0) % Baso % (Auto) 0.1 (0.0-3.0) % Neut # (Auto) 4.76 (1.7-7.0) K/uL Lymph # (Auto) 2.21 (0.90-2.90) K/uL [place] # (Auto) 0.70 (0.00-0.90) K/UL Eos # (Auto) 0.11 (0.00-0.50) K/uL Baso # (Auto) 0.01 (0.00-0.30) K/uL Abs Immat Gran (auto) 0.01 (0.00-0.30) K/uL Imm/Tot Granulo (auto) 0.1 % Sodium 139 (135-149) mmol/L Potassium 4.3 (3.6-5.1) mmol/L Chloride 102 (96-114) mmol/L Carbon Dioxide 27 (20-32) mmol/L Anion Gap 10 (7-15) mEq/L BUN 22 (7-30) mg/dL Creatinine 1.2 (0.5-1.5) mg/dL Estimated Creat Clear 42.09 Estimated GFR 60 ml/min Glucose 111 (60-115) mg/dL Calcium 9.2 (8.4-10.6) mg/dL POC Creatinine 1.3 (0.6-1.3) mg/dl Imaging Data Chest x-ray: Attestation: I have reviewed the pertinent imaging results. My impression: No pneumothorax, no hemothorax. No visible rib fracture Radiologist's impression: IMPRESSION: No acute or significant findings. CT Chest/Ab/Pelvis: Attestation: I have reviewed the pertinent imaging results. Radiologist's impression: IMPRESSION: 1. No evidence of an acute traumatic injury within the chest, abdomen, or pelvis. 2. No acute findings. 3. Diverticulosis without evidence of diverticulitis. Discharge Plan Discharge Clinical Impression: Chest injury Patient Disposition: Home, Self-Care Condition: Stable Instructions: Blunt Chest Trauma (ED) Additional Instructions: Good news. So far we do not see any sign of serious injuries such as broken rib or other internal injury. We suspect your pain is probably caused by a bad bruise to your chest wall. To treat your pain you can use Tylenol every 6 hours as needed. Use the pre scription pain killer only if needed for bad pain that is not controlled by Tylenol. Be careful with Percocet because it causes dizziness, drowsiness, constipation, and can be addictive. You may notice some bruising that develops on the left side of your rib cage tomorrow. Some bruising is expected and is not cause for alarm. However if you have significant bruising or severe pain or trouble breathing, abdominal pain, or any other problems, please return to the ER right away. Prescriptions: No Action diltiazem HCl 240 mg capsule,ext.rel 24h degradable 240 mg PO DAILY metoprolol succinate 25 mg tablet extended release 24 hr 25 mg PO DAILY Eliquis 5 mg tablet 5 mg PO BID cholecalciferol (vitamin D3) 50 mcg (2,000 unit) capsule 2,000 unit PO DAILY Gemtesa 75 mg tablet 75 mg PO DAILY prednisone 1 mg tablet 3 mg PO DAILY levothyroxine 112 mcg tablet 112 mcg PO QAM acetaminophen 500 mg tablet 650 mg PO Q6H Qty: 90 0RF Follow Up/Referrals: Ruiz Frank MD [Primary Care Provider] - Stand Alone Forms: [facility] Info Instructions Procedures FAST Exam FAST Exam 1: US method: abdominal Was an Echo performed?: No Fluid in Morison's pouch: No Fluid in [place]: No Fluid around bladder, Transverse view: No Fluid around bladder, Sagittal view: No Study normal for this patient: Yes Images saved for further review: Yes Additional Comments: Positive lung sliding with a positive ?sea shore? sign on the left hemithorax indicating absence of pneumothorax.
[2025-01-03 21:39] LABS: Chloride* 102 mmol/L (96-114); Potassium* 4.3 mmol/L (3.6-5.1); Sodium* 139 mmol/L (135-149)
[2025-01-03 21:42] LABS: Anion Gap 10 mEq/L (7-15); Blood Urea Nitrogen* 22 mg/dL (7-30); Calcium* 9.2 mg/dL (8.4-10.6); Carbon Dioxide* 27 mmol/L (20-32); Creatinine* 1.2 mg/dL (0.5-1.5); Est. Creatinine Clearance* 42.09; Estimated Glomerular Filt Rate 60 ml/min; Glucose* 111 mg/dL (60-115)
--- OUTSIDE RECORDS SUMMARY | 2025-01-03 21:50 | XMS_ITS | Clinical Summary ---
Author Organization [facility] Address [address], [place] [address] Care Team Providers Care Boxing Instructor Name Role Phone Ruiz Frank MD Primary Care Provider [phone] Source Comments You are receiving this document as you are listed as the primary care provider,follow-up provider, or the patient has been referred to you for consultation.This is in compliance with the Medicare and[facility] Hospital[facility] EHR Incentive Program,which states Providers who transition their patient to another setting of careor provider of care or refers their patient to another provider of care shouldprovide summary care record for each transition of care or referral. [employer] Allergies Active Allergy Reactions Criticality Noted Date [...] this topic Medical Devices Implanted Type Area Medical Collections Specialist Device Identifier Shelf Expiration Date Model / Serial / Lot Sut Mini Mitek 2-0 Plus - [id number] Implanted:Qty : 1 on 07/16/2016 by Pako Key MD at [facility] [employer] Right: WRIST J 11/24/[id number] / 0 / [id number] Sut Mini Mitek 2-0 Plus - [id number] Implanted:Qty : 1 on 07/16/2016 by Pako Key MD at [employer] Right: WRIST J 03/24/[id number] / 0 / [id number] K-Wire Trcr Pt 1.6x150 [employer] - [id number] Implanted:Qty : 2 on 07/16/2016 by Pako Key MD at [employer] Right: W[employer] [id number] / 0 / 0 04/15/2016 Implanted: (Quantity not on file) Description:Dental Implant Insurance MEDICARE UHC INDEMNITY Care Teams Boxing Instructor Relationship Specialty Start Date End Date Ruiz Frank MD [address] [place] [address] PCP - General Family Practice 06/24/16
--- OUTSIDE RECORDS SUMMARY | 2025-01-03 21:50 | XMS_ITS | Clinical Summary ---
Author Organization [facility] Address [address] [place] [address] Care Team Providers Care Safety Equipment Tester Name Role Phone Jordi Torres Augusto Unavailable [phone] Girish Max MD Unavailable Unavail able Ruiz Frank MD Primary Care Provider Lazaro Carrington MD Unavailable [phone] Allergies Active Allergy Reactions Criticality Noted Date Comments Oxybutynin Other - Describe In Comment Field Dry mouth Trospium Other - Describe In Comment Field Dry mouth Medications Cholecalciferol, Vitamin D3, 2,000 unit tabletIndications: Vitamin D deficiency,Osteopo rosis, unspecified Take 1 tablet by mouth once daily. 0 05/30/20 12 Active durable medical equipment (DME)Indications:S /P foot surgery, right [id number] Squared toe post op shoe. Medium 1 [...] to Pituitary Adenoma - surgically removed. 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 He tells me that this was originally diagnosed in the mid , when he first saw a neurologist in [place], and then was referred to the [facility] where the diagnosis was apparently confirmed. Also, [...] Type Department Care Team Description 12/29/2024 Telephone [facility] [address] [place] [address] Ruiz Frank MD returning call (return call) 12/22/2024 1:00 PM CLEANING HANDYMAN Office Visit [facility] [address] [place] [address] Hernando Ann, AuD Hearing Aid 12/22/2024 Travel 12/15/2024 2:05 PM CLEANING HANDYMAN Office Visit [facility] [address] [place] [address] Ruiz Frank MD Medicare ANNUAL (subsequent) Visit (84 year old ) 12/15/2024 Travel 11/30/2024 1:30 PM CLEANING HANDYMAN Office Visit [facility] [address] [place] [address] Hernando Ann, AuD Hearing Aid (Fitting) 11/30/2024 Travel 11/20/2024 Orders Only [facility] Scanner 1 scan: (1-Ord) [facility], MULTIPLE LAB RESULTS, 11/20/2024 11/20/2024 Orders Only [facility] Scanner 1 scan: (1-Ord) [facility], CHEST W CON , 11/20/2024 11/09/2024 10:30 AM CLEANING HANDYMAN Office Visit [facility] [address] [place] [address] Hernando Ann, AuD Hearing Aid 11/09/2024 Travel 11/02/2024 1:49 PM CLEANING HANDYMAN - 11/02/2024 11:59 PM CLEANING HANDYMAN Hospital Encounter [facility] [address] [place] [address] Age-related osteoporosis without current pathological fracture (Primary Dx) 11/02/2024 Travel 10/27/2024 Hospital/[facility] Telephone Encounter [facility] [address] [place] [address] Ashley Judge RN Pre Procedure (PVP) 10/19/2024 Telephone [facility] [address] [place] [address] Lazaro Carrington MD Lab 10/19/2024 Orders Only [facility] [address] [facility] [place] [address] Lazaro Carrington MD <No scans attached> 10/19/2024 Telephone [facility] [address] [facility] [place] [address] Buffy Baker, FAST FOOD MANAGER Appointment 10/19/2024 Telephone [facility] [address] [place] [address] Ruiz Frank MD Error-please disregard (ERROR) 10/05/2024 11:30 AM CLEANING HANDYMAN Office Visit [facility] [address] [place] [address] Hernando Ann, AuD Hearing Aid 10/05/2024 Travel [...] on file Legal Sex Male 6:03 AM CLEANING HANDYMAN Gender Identity Not on file Sexual Orientation Not on file Occupation Industry Job Start Date Job End Date Retired Not on file Not on file Not on file Obstetrics History Last Filed Vital Signs Vital Sign Reading Time Taken Comments Blood Pressure 133/75 12/15/2024 2:13 PM CLEANING HANDYMAN Pulse 81 12/15/2024 2:13 PM CLEANING HANDYMAN Temperature 36.5 C (97.7 F) 12/15/2023 1:21 PM CLEANING HANDYMAN Respiratory Rate 18 11/02/2024 1:58 PM CLEANING HANDYMAN Oxygen Saturation 96% 12/15/2024 2:13 PM CLEANING HANDYMAN Inhaled Oxygen Concentration - - Weight 97.1 kg (214 lb) 12/15/2024 2:13 PM CLEANING HANDYMAN Height 170 cm (5' 6.93) 12/15/2024 2:13 PM CLEANING HANDYMAN Body Mass Index 33.59 12/15/2024 2:13 PM CLEANING HANDYMAN Plan of Treatment Upcoming Encounters Date Type Department Care Team (Late st Contact Info) Description 02/09/2025 1:15 PM CDT Office Visit [facility] [address] [place] [address] Ruiz Frank MD [address] [facility] [place] [address] Health Maintenance Due Date Last Done Comments [...] history exists Medical Devices Implanted Type Area Manager Of Tax Device Identifier Shelf Expiration Date Model / Serial / Lot Zoie Hole Cover 14mm Implanted:Qty: 3 on 04/22/2010 at [facility] 7512 / / [id number] Description:ZOIE HOLE COVER 14MM MEDPOR Procedures Procedure Name Priority Date/Time Associated Diagnosis Comments LIPID PANEL W REFLEX MEASURED LDL Routine 12/15/2024 2:57 PM CLEANING HANDYMAN Type 2 diabetes mellitus with stage 3a chronic kidney disease, without long-term current use of insulin (HC) VITAMIN D 25 (DEFICIENCY) Routine 12/15/2024 2:57 PM CLEANING HANDYMAN Vitamin D deficiency BASIC METABOLIC PANEL Routine 12/15/2024 2:57 PM CLEANING HANDYMAN Type 2 diabetes mellitus with stage 3a chronic kidney disease, without long-term current use of insulin (HC) HEMOGLOBIN A1C MONITORING (POCT) Routine 12/15/2024 2:55 PM CLEANING HANDYMAN Type 2 diabetes mellitus with stage 3a chronic kidney disease, without long-term current use of insulin (HC) SCAN-LABORATORY REPORT 5 12:00 AM CLEANING HANDYMAN SCAN-CT INTERPRETATION 5 12:00 AM CLEANING HANDYMAN CREATININE STAT 11/02/2024 2:30 PM CLEANING HANDYMAN Age-related osteoporosis without current pathological fracture CALCIUM STAT 11/02/2024 2:30 PM CLEANING HANDYMAN Age-related osteoporosis without current pathological fracture from Last 3 Months Results * (ABNORMAL) LIPID PANEL W REFLEX MEASURED LDL (12/15/2024 2:57 PM CLEANING HANDYMAN) [facility] CHOLESTEROL, TOTAL 179 <200 mg/dL [facility] HDL CHOLESTEROL 54 > OR = 40 mg/dL [facility] TRIGLYCERIDES 82 <150 mg/dL [facility] LDL-CHOLESTEROL 108(H) mg/dL (calc) [facility] Comment: Reference range: <100 Desirable range <100 mg/dL for primary prevention; <70 mg/dL for patients with CHD or diabetic patients with > or = 2 CHD risk factors. LDL-C is now calculated using the Yasmine calculation, which is a validated novel method providing better accuracy than the Friedewald equation in the estimation of LDL-C. Sergo SS et al. RIA. 2013;310(19): 1560-9698 (http://education.Drop '[employer] you Shop/faq/GXE131) CHOL/HDLC RATIO 3.3 <5.0 (calc) [facility] NON HDL CHOLESTEROL 125 <130 mg/dL (calc) [facility] Comment: For patients with diabetes plus 1 major ASCVD risk factor, treating to a non-HDL-C goal of <100 mg/dL (LDL-C of <70 mg/dL) is considered a therapeutic option. Blood BLOOD SPECIMEN / Unknown 12/15/2024 2:57 PM CLEANING HANDYMAN 12/15/2024 2:57 PM CLEANING HANDYMAN us Ruiz Frank MD CHEMISTRY Final Result Performing Organization Address [facility]/ZIP Co de Phone Number [facility] [address] [place] [address], [facility] [address] [place] [address] * VITAMIN D 25 (DEFICIENCY) (12/15/2024 2:57 PM CLEANING HANDYMAN) Pathologist [facility] VITAMIN D,25-OH,TOTAL,IA 37 30 - 100 ng/mL [facility] Comment: Vitamin D Status 25-OH Vitamin D: Deficiency: <20 ng/mL Insufficiency: 20 - 29 ng/mL Optimal: > or = 30 ng/mL For 25-OH Vitamin D testing on patients on D2-supplementation and patients for whom quantitation of D2 and D3 fractions is required, the [facility] 25-OH VIT D, (D2,D3), LC/MS/MS is recommended: order code [id number] (patients >2yrs). See Note 1 Note 1 For additional information, please refer to http://education.Drop 'til you Shop/faq/IGN076 (This link is being provided for informational/ educational purposes only.) Blood BLOOD SPECIMEN / Unknown 12/15/2024 2:57 PM CLEANING HANDYMAN 12/15/2024 2:57 PM CLEANING HANDYMAN us Ruiz Frank MD SEND OUTS Final Result [facility] [address] [place] [address], [place] [phone] [facility] [address] [facility] [place] [address] * BASIC METABOLIC PANEL (12/15/2024 2:57 PM CLEANING HANDYMAN) [facility] GLUCOSE 99 65 - 99 mg/dL [facility] Comment: Fasting reference interval UREA NITROGEN (BUN) 24 7 - 25 mg/dL [facility] CREATININE 1.13 0.70 - 1.22 mg/dL [facility] EGFR 64 > OR = 60 mL/min/1. 73m2 [facility] BUN/CREATININE RATIO SEE NOTE: 6 - 22 (calc) [facility] Comment: Not Reported: BUN and Creatinine are within reference range. SODIUM 140 135 - 146 mmol/L [facility] POTASSIUM 5.2 3.5 - 5.3 mmol/L [facility] CHLORIDE 105 98 - 110 mmol/L [facility] CARBON DIOXIDE 27 20 - 32 mmol/L [facility] ELECTROLYTE BALANCE 8 7 - 17 mmol/L (calc) [facility] CALCIUM 9.7 8.6 - 10.3 mg/dL [facility] Blood BLOOD SPECIMEN / Unknown 12/15/2024 2:57 PM CLEANING HANDYMAN 12/15/2024 2:57 PM CLEANING HANDYMAN Ruiz Frank MD CHEMISTRY Final Result [facility] [address] [place] [address], [facility] [address] [place] [address] * HEMOGLOBIN A1C MONITORING (POCT) (12/15/2024 2:55 PM CLEANING HANDYMAN) [facility] POC HEMOGLOBIN A1C 5.8 <6.0 % OF TOTAL [facility] Comment: Any point of care results exhibiting inconsistency with the patient's clinical status should be repeated using a different testing method. Blood BLOOD SPECIMEN / Unknown 12/15/2024 2:55 PM CLEANING HANDYMAN 12/15/2024 2:56 PM CLEANING HANDYMAN us Ruiz Frank MD CHEMISTRY Final Result Performing Organization Address City/[facility]/ZIP Co de Phone Number [facility] [address] [place] [address], [place] [phone] [facility] [address] [place] [address] * SCAN-LABORATORY REPORT (11/20/2024 12:00 AM CLEANING HANDYMAN) us Scanner OTHER Final Result * SCAN-CT INTERPRETATION (11/20/2024 12:00 AM CLEANING HANDYMAN) Anatomical Region Laterality Modality Other us Scanner OTHER Final Result * (ABNORMAL) CREATININE (11/02/2024 2:30 PM CLEANING HANDYMAN) eGFR 63(L) >90 mL/min/1.7 3m2 11/02/2024 2:54 PM CLEANING HANDYMAN [facility] Comment:As of 2022, eG FR is calculated by the CKD-EPI creatinine equation without race adjustment. eGFR can be influenced by muscle mass, exercise, and diet. The reported eGFR is an estimation only and is only applicable if the renal function is stable. CREATININE 1.16 0.70 - 1.20 mg/dL 11/02/2024 2:54 PM CLEANING HANDYMAN [facility] Blood BLOOD SPECIMEN / Unknown Venipuncture / Unknown 11/02/2024 2:30 PM CLEANING HANDYMAN 11/02/2024 2:35 PM CLEANING HANDYMAN us Lazaro Carrington MD CHEMISTRY Final Re sult [facility] [address] [place] [address] * CALCIUM (11/02/2024 2:30 PM CLEANING HANDYMAN) CALCIUM 9.5 8.8 - 10.4 mg/dL 11/02/2024 2:54 PM CLEANING HANDYMAN [facility] Comment: Reference ranges for this test were updated on 08/29/2024 to reflect our healthy population more accurately. Reference range changes are not retroactively applied to results, but previous results using the same methodology can be interpreted in the context of the new reference range. Blood BLOOD SPECIMEN / Unknown Venipuncture / Unknown 11/02/2024 2:30 PM CLEANING HANDYMAN 11/02/2024 2:35 PM CLEANING HANDYMAN Lazaro Carrington MD CHEMISTRY Final Re sult [facility] [address] [place] [address] from Last 3 Months Insurance MEDICARE PB ONLY MEDICARE PART B HB ONLY MEDICARE PART A HB ONLY [facility] * Guarantor: ANW CONTRACT,[facility] Account Type Relation to Patient Date of Phone Billing Address Contract [address] [address] Advance Directives Documents on File Type Date Recorded Patient Satellite Dish Repairer Expl anation Healthcare Directive 11/18/2007 AN ADVA NCE DIRECTIVE/[facility], 11/18/07 * Full Code (Latest Code Status on File) Date Activated Date Inactivated Comments 04/22/2010 1:26 PM 04/26/2010 3:23 PM * Full Code Date Activated Date Inactivated Comments 04/21/2010 3:32 PM 04/22/2010 2:19 AM * DNR Date Activated Date Inactivated Comments 04/17/2010 11:28 AM 04/21/2010 3:32 PM DNR status was discussed at this time. Care Teams Safety Equipment Tester Relationship Specialty Start Date End Date Ruiz Frank MD [address] [place] [id number] PCP - General Family Practice 06/12/13 Jordi Torres [address] [place] [address] Erecting Engineer 10/07/11 Girish Max MD [address] [place] [address] Surgery - Orthopedics 10/07/11 Lazaro Carrington MD [address] [place] [address] Endocrinology 03/18/23
--- NOTE | 2025-01-03 23:25 | ED.NURSE ---
Pt declined wanting to fill instymed Percocet prescription. Script shredded.
== END 2025-01-03 23:35 | disposition home or self-care (01) ==
PROVIDERS: Emergency Provider Emergency Medicine; PCP Family Medicine
DX: S20.212A Contusion of left front wall of thorax, initial encounter (principal); W10.2XXA Fall (on)(from) incline, initial encounter; I48.91 Unspecified atrial fibrillation; Z79.01 Long term (current) use of anticoagulants; R07.89 Other chest pain; R06.02 Shortness of breath
CPT/HCPCS: 36415; 71045; 71260; 74177; 76604; 76705; 80048; 82565; 85025; 93308; 99284; A9270; Q9967